=== PATIENT | female | born 1945 | race Caucasian/White ===

== ENCOUNTER → 2018-01-18 | Outpatient (CLI) | payer OTHER ==
[~2018-01-18] MED LIST: ACET325 PO; ARIP10 PO; CEFP200 PO; CEPH500 PO; CHOL10002 PO; CIPR500 PO; CLOP75 PO; CYAN1000 PO; FAMO40 PO; FENO67 PO; Fish Oil 10001000 MG PO; GABA100 PO; GLIP10 PO; GLIP5 PO; GLIPIZIDE; HYDACE5 PO; HYDACE7.5 PO; INSULANPEN SC; LANS15EC PO; LEVFLO500 PO; LIDO2L SS; LISI20 PO; LISI5 PO; LORA1 PO; Loratadine10 MG PO; METF500 PO; OMEP20ER PO; PANT40 PO; POTA20LUD PO; PROP30DR BOTHEYES; Pyridium100 MG; Pyridium100 MG PO; Pyridium200 MG PO; RISAMINE OINTM113 GM TP; TRADJENTA PO; TRIE10TC TOP; ZINCODVICR TOP
[2018-01-18 16:38] LABS: Appearance, Urine Clear (Clear); Bilirubin, Urine Neg (Neg); Blood, Urine Neg (Neg); Color, Urine Yellow (P-Yellow); Glucose Qualitative, Urine Neg (Neg); Ketones, Urine Neg (Neg); Leukocyte Esterase, Urine 2+ (Neg); Nitrite, Urine Neg (Neg); Protein, Urine Neg (Neg); Specific Gravity, Urine 1.015 (1.003-1.022); Urobilinogen, Urine NORM (Normal)
[2018-01-18 16:44] LABS: Bacteria Many /hpf; Red Blood Cells, Urine 0-2 /hpf (0-2); Squamous Epithelial Cells Mod /hpf (Few)
== END ==
LOC: LAB 15:30 → LAB SHORT 15:30
PROVIDERS: Nurse Practitioner Primary Care
DX: N39.0 Urinary tract infection, site not specified (principal)
CPT/HCPCS: 81001; 87077; 87086; 87186

== ENCOUNTER 2018-02-14 12:08 | Emergency (ER) | payer OTHER ==
[~2018-02-14] VITALS: Ht 154.9 cm; Wt 54.4 kg
[2018-02-14] MEDS ORDERED: INSULANPEN SC (12:15)
[2018-02-14 12:36] LABS: Source, Urine Catheter
[2018-02-14 12:47] LABS: Bilirubin, Urine Neg (Neg); Blood, Urine Neg (Neg); Glucose Qualitative, Urine Neg (Neg); Ketones, Urine Neg (Neg); Leukocyte Esterase, Urine 2+ (Neg); Nitrite, Urine Neg (Neg); Protein, Urine Neg (Neg); Urobilinogen, Urine 1+ (Normal)
[2018-02-14 13:02] LABS: Appearance, Urine Cloudy (Clear); Color, Urine Yellow (P-Yellow)
[2018-02-14 13:05] LABS: Bacteria Many /hpf; Red Blood Cells, Urine Not Seen /hpf (0-2); Squamous Epithelial Cells Many /hpf (Few)
[2018-02-14] MEDS ORDERED: CEPH500 PO (13:55)
== END 2018-02-14 15:33 | disposition home or self-care (01) ==
LOC: ER 12:08
PROVIDERS: Physician Assistant
DX: S93.401A Sprain of unspecified ligament of right ankle, initial encounter (principal); N39.0 Urinary tract infection, site not specified; L22 Diaper dermatitis; I10 Essential (primary) hypertension; E11.9 Type 2 diabetes mellitus without complications; F41.9 Anxiety disorder, unspecified; F20.9 Schizophrenia, unspecified; Z88.6 Allergy status to analgesic agent; Z88.8 Allergy status to other drugs, medicaments and biological substances; Z79.4 Long term (current) use of insulin; Z79.899 Other long term (current) drug therapy; W50.0XXA Accidental hit or strike by another person, initial encounter
CPT/HCPCS: 73610; 81001; 87077; 87086; 87186; 99283; P9612

== ENCOUNTER → 2018-03-18 | Outpatient (CLI) | payer OTHER ==
[2018-03-18 15:26] LABS: Bilirubin, Urine Neg (Neg); Blood, Urine Neg (Neg); Glucose Qualitative, Urine 3+ (Neg); Ketones, Urine Neg (Neg); Leukocyte Esterase, Urine Neg (Neg); Nitrite, Urine Neg (Neg); Protein, Urine Neg (Neg); Urobilinogen, Urine NORM (Normal)
[2018-03-18 15:47] LABS: Appearance, Urine Clear (Clear); Color, Urine Yellow (P-Yellow)
== END | disposition home or self-care (01) ==
LOC: LAB 15:13 → LAB SHORT 15:13
PROVIDERS: Nurse Practitioner Primary Care
DX: N39.0 Urinary tract infection, site not specified (principal)
CPT/HCPCS: 81003

== ENCOUNTER → 2018-03-25 | Outpatient (CLI) | payer OTHER ==
[2018-03-25 15:45] LABS: Bilirubin, Urine Neg (Neg); Blood, Urine Neg (Neg); Glucose Qualitative, Urine Neg (Neg); Ketones, Urine 1+ (Neg); Leukocyte Esterase, Urine 1+ (Neg); Nitrite, Urine Neg (Neg); Protein, Urine 1+ (Neg); Specific Gravity, Urine 1.025 (1.003-1.022); Urobilinogen, Urine 2+ (Normal)
[2018-03-25 15:59] LABS: Appearance, Urine Hazy (Clear); Color, Urine Yellow (P-Yellow)
[2018-03-25 16:00] LABS: Bacteria Many /hpf; Red Blood Cells, Urine 0-2 /hpf (0-2); Squamous Epithelial Cells Many /hpf (Few)
== END | disposition home or self-care (01) ==
LOC: LAB 14:35 → LAB SHORT 14:35
PROVIDERS: Nurse Practitioner Primary Care
DX: N39.0 Urinary tract infection, site not specified (principal)
CPT/HCPCS: 81001; 87077; 87086; 87186

== ENCOUNTER 2018-08-31 16:40 | Emergency (ER) | payer OTHER ==
[~2018-08-31] VITALS: Ht 154.9 cm; Wt 65.8 kg
[2018-08-31 17:21] LABS: BASOPHILS ABSOLUTE AUTO 0.02 K/mm3 (0.00-0.23); BASOPHILS PERCENT AUTO 0 % (0-2); EOSINOPHILS ABSOLUTE AUTO 0.06 K/mm3 (0.00-0.68); EOSINOPHILS PERCENT AUTO 1 % (0-6); Hemoglobin 12.7 g/dL (11.5-16.0); IMMATURE GRAN ABSOLUTE AUTO 0.02 K/mm3 (0.00-0.10); IMMATURE GRAN PERCENT AUTO 0 % (0-1); LYMPHOCYTES ABSOLUTE AUTO 1.48 K/mm3 (0.84-5.20); LYMPHOCYTES PERCENT AUTO 14 % (21-46); MONOCYTES ABSOLUTE AUTO 0.52 K/mm3 (0.16-1.47); MONOCYTES PERCENT AUTO 5 % (4-13); Mean Corpuscular HGB 31.5 pg (26.0-34.0); Mean Corpuscular HGB Conc 31.8 g/dL (31.5-36.5); Mean Corpuscular Volume 99 fL (80-100); Mean Platelet Volume 10.5 fL (9.1-12.4); NEUTROPHILS ABSOLUTE AUTO 8.81 K/mm3 (1.96-9.15); NEUTROPHILS PERCENT AUTO 81 % (41-73); Platelet Count 239 K/mm3 (150-400); RDW Coefficient Variation 13.2 % (11.7-14.2); RDW Standard Deviation 48.4 fL (35.1-46.3); Red Blood Cell Count 4.03 M/mm3 (3.80-5.20); White Blood Cell Count 10.91 K/mm3 (4.00-11.30)
[2018-08-31 17:39] LABS: Albumin/Globulin Ratio 1.1 (0.8-1.8); Bilirubin, Total 0.3 mg/dL (0.1-1.0); Bun/Creatinine Ratio 18.6 (12.0-20.0); Calcium, Blood 8.7 mg/dL (8.5-10.1); Creatinine, Blood 1.29 mg/dL (0.40-1.00); Globulin, Blood 3.6 g/dL (2.2-4.0); Potassium, Blood 4.2 mmol/L (3.5-5.5); Total Protein, Blood 7.6 g/dL (6.4-8.2)
[2018-08-31 20:19] LABS: Source, Urine Voided
[2018-08-31 20:30] LABS: Bilirubin, Urine Neg (Neg); Blood, Urine Neg (Neg); Color, Urine Yellow (P-Yellow); Glucose Qualitative, Urine 2+ (Neg); Ketones, Urine Neg (Neg); Leukocyte Esterase, Urine Neg (Neg); Nitrite, Urine Neg (Neg); Protein, Urine 1+ (Neg); Specific Gravity, Urine 1.015 (1.003-1.022); Urobilinogen, Urine NORM (Normal); pH, Urine 6.5 (5.0-8.0)
[2018-08-31 20:39] LABS: Appearance, Urine Clear (Clear)
[2018-08-31] MEDS ORDERED: ONDA4ODT MM (21:27)
== END 2018-08-31 22:08 | disposition home or self-care (01) ==
LOC: ER 16:40
PROVIDERS: Physician Assistant
DX: R11.10 Vomiting, unspecified (principal); I10 Essential (primary) hypertension; E11.9 Type 2 diabetes mellitus without complications; F41.9 Anxiety disorder, unspecified; F20.9 Schizophrenia, unspecified; Z88.6 Allergy status to analgesic agent; Z88.8 Allergy status to other drugs, medicaments and biological substances; Z79.899 Other long term (current) drug therapy; Z79.4 Long term (current) use of insulin
CPT/HCPCS: 36415; 51702; 80053; 82140; 83690; 84484; 85025; 93005; 93010; 96374; 99284-25; J2405

== ENCOUNTER → 2018-10-11 | Outpatient (CLI) | payer OTHER ==
[~2018-10-11] MED LIST changes: +ONDA4ODT MM
[2018-10-12 14:25] LABS: Appearance, Urine Cloudy (Clear); Color, Urine Yellow (P-Yellow); Glucose Qualitative, Urine Neg (Neg); Ketones, Urine Neg (Neg); Leukocyte Esterase, Urine 3+ (Neg); Nitrite, Urine Neg (Neg); Protein, Urine 1+ (Neg); Specific Gravity, Urine 1.015 (1.003-1.022)
[2018-10-12 14:26] LABS: Bilirubin, Urine Neg (Neg); Blood, Urine 2+ (Neg); Red Blood Cells, Urine 50-100 /hpf (0-2); Squamous Epithelial Cells Mod /hpf (Few); Urobilinogen, Urine NORM (Normal); White Blood Cells, Urine TNTC /hpf (0-5)
[2018-10-12 14:27] LABS: Bacteria Many /hpf
== END | disposition home or self-care (01) ==
LOC: LAB SHORT 08:20 → LAB 08:20
PROVIDERS: Family Medicine
DX: N39.0 Urinary tract infection, site not specified (principal)
CPT/HCPCS: 81001; 87077; 87086; 87186

== ENCOUNTER → 2018-11-11 | Outpatient (CLI) | payer OTHER ==
[2018-11-11 10:41] LABS: Bilirubin, Urine Neg (Neg); Blood, Urine Neg (Neg); Glucose Qualitative, Urine 4+ (Neg); Ketones, Urine Neg (Neg); Leukocyte Esterase, Urine Neg (Neg); Nitrite, Urine Neg (Neg); Protein, Urine Neg (Neg); Urobilinogen, Urine NORM (Normal)
[2018-11-11 10:54] LABS: Appearance, Urine Clear (Clear); Color, Urine Yellow (P-Yellow)
== END | disposition home or self-care (01) ==
LOC: LAB 10:32 → LAB SHORT 10:32
PROVIDERS: Family Medicine
DX: N39.0 Urinary tract infection, site not specified (principal)
CPT/HCPCS: 81003

== ENCOUNTER 2018-11-29 11:02 | Emergency (ER) | payer OTHER ==
[~2018-11-29] VITALS: Ht 157.5 cm; Wt 79.4 kg
[2018-11-29 12:21] LABS: BASOPHILS ABSOLUTE AUTO 0.01 K/mm3 (0.00-0.23); BASOPHILS PERCENT AUTO 0 % (0-2); EOSINOPHILS ABSOLUTE AUTO 0.04 K/mm3 (0.00-0.68); EOSINOPHILS PERCENT AUTO 1 % (0-6); Hematocrit 39.4 % (33.0-51.0); Hemoglobin 12.4 g/dL (11.5-16.0); IMMATURE GRAN ABSOLUTE AUTO 0.03 K/mm3 (0.00-0.10); IMMATURE GRAN PERCENT AUTO 0 % (0-1); LYMPHOCYTES ABSOLUTE AUTO 1.84 K/mm3 (0.84-5.20); LYMPHOCYTES PERCENT AUTO 27 % (21-46); MONOCYTES ABSOLUTE AUTO 0.37 K/mm3 (0.16-1.47); MONOCYTES PERCENT AUTO 5 % (4-13); Mean Corpuscular HGB 31.6 pg (26.0-34.0); Mean Corpuscular HGB Conc 31.5 g/dL (31.5-36.5); Mean Corpuscular Volume 100 fL (80-100); Mean Platelet Volume 10.5 fL (9.1-12.4); NEUTROPHILS ABSOLUTE AUTO 4.51 K/mm3 (1.96-9.15); NEUTROPHILS PERCENT AUTO 66 % (41-73); Platelet Count 267 K/mm3 (150-400); RDW Coefficient Variation 13.1 % (11.7-14.2); RDW Standard Deviation 48.6 fL (35.1-46.3); Red Blood Cell Count 3.93 M/mm3 (3.80-5.20)
[2018-11-29 12:48] LABS: Alanine Aminotransfer (ALT/SGP 38 U/L (12-78); Albumin, Blood 3.8 g/dL (3.4-5.0); Albumin/Globulin Ratio 1.1 (0.8-1.8); Alk Phos 56 U/L (50-136); Anion Gap 8 mmol/L (6-16); Aspartate Aminotrans (AST/SGOT 27 U/L (12-37); Bilirubin, Total 0.4 mg/dL (0.1-1.0); Blood Urea Nitrogen 23 mg/dL (8-24); Bun/Creatinine Ratio 16.8 (12.0-20.0); CO2, Blood 26 mmol/L (21-32); Calcium, Blood 9.1 mg/dL (8.5-10.1); Chloride, Blood 108 mmol/L (98-108); Creatinine, Blood 1.37 mg/dL (0.40-1.00); Globulin, Blood 3.5 g/dL (2.2-4.0); Glomerular Filtration Rate 40 (60-); Glucose, Blood 105 mg/dL (70-99); Potassium, Blood 4.4 mmol/L (3.5-5.5); Sodium, Blood 142 mmol/L (136-145); Total Protein, Blood 7.3 g/dL (6.4-8.2); Troponin I <0.015 ng/mL (0.000-0.040)
== END 2018-11-29 13:43 | disposition home or self-care (01) ==
LOC: ER 11:02
PROVIDERS: Emergency Medicine
DX: R10.12 Left upper quadrant pain (principal); Z88.8 Allergy status to other drugs, medicaments and biological substances; Z79.899 Other long term (current) drug therapy; Z79.4 Long term (current) use of insulin; I10 Essential (primary) hypertension; E11.9 Type 2 diabetes mellitus without complications; E78.5 Hyperlipidemia, unspecified; K21.9 Gastro-esophageal reflux disease without esophagitis; F41.9 Anxiety disorder, unspecified; F20.9 Schizophrenia, unspecified
CPT/HCPCS: 36415; 71045; 80053; 83690; 84484; 85025; 93005; 93010; 99285-25

== ENCOUNTER → 2019-01-16 | Outpatient (CLI) | payer OTHER | END | disposition home or self-care (01) | LOC: LAB SHORT 19:23 → LAB 19:23 | DX: N39.0 Urinary tract infection, site not specified (principal) | CPT/HCPCS: 87077; 87086; 87186 ==

== ENCOUNTER → 2020-08-02 | Outpatient (CLI) | payer OTHER ==
[~2020-08-02] MED LIST changes: +ABILIFY MYCITE15 MG PO; +Crestor20 MG PO; +Estrace Vagin42.5 GM VAG; -Fish Oil 10001000 MG PO; +LANTUS SOL100 UNIT/1 SC; +Lisinopril2.5 MG PO; +OMEGA-3 FISH O1 EAC6 PO; +PANT20 PO; +ROSUVASTATIN CA20 MG PO; +TRADJENTA5 MG PO; +TRULICITY0.75 MG/01 SC; +VISBIOME PROBI1 EACH PO
[2020-08-02 14:40] LABS: Appearance, Urine Clear (Clear); Bilirubin, Urine Neg (Neg); Blood, Urine 1+ (Neg); Color, Urine Yellow (P-Yellow); Glucose Qualitative, Urine 4+ (Neg); Ketones, Urine Neg (Neg); Leukocyte Esterase, Urine 2+ (Neg); Nitrite, Urine Neg (Neg); Protein, Urine 1+ (Neg); Urobilinogen, Urine 1+ (Normal)
[2020-08-02 14:49] LABS: Bacteria Many /hpf; Red Blood Cells, Urine 0-2 /hpf (0-2); Squamous Epithelial Cells Few /hpf (Few); White Blood Cells, Urine TNTC /hpf (0-5)
== END | disposition home or self-care (01) ==
LOC: LAB SHORT 14:05 → LAB 14:05
PROVIDERS: Family Medicine
DX: N39.0 Urinary tract infection, site not specified (principal)
CPT/HCPCS: 81001; 87077; 87086; 87186

== ENCOUNTER → 2020-09-17 | Outpatient (CLI) | payer OTHER ==
[~2020-09-17] MED LIST changes: -ABILIFY MYCITE15 MG PO; +ABILIFY MYCITE5 M1 PO; +B-121000 MC3 PO; +Cipro500 MG PO; +DIAPER RASH113 G1 TOP; +MOBISYL TOP; +ONDA4 PO; +SYSTANE COMPLET10 ML BOTHEYES; +VITAMIN D325 MC3 PO
[2020-09-17 10:57] LABS: Source, Urine Clean Catch
[2020-09-17 13:08] LABS: Appearance, Urine Cloudy (Clear); Bilirubin, Urine Neg (Neg); Blood, Urine 1+ (Neg); Color, Urine Yellow (P-Yellow); Glucose Qualitative, Urine Neg (Neg); Ketones, Urine Neg (Neg); Leukocyte Esterase, Urine 3+ (Neg); Nitrite, Urine Neg (Neg); Protein, Urine 1+ (Neg); Specific Gravity, Urine 1.015 (1.003-1.022); Urobilinogen, Urine NORM (Normal)
[2020-09-17 13:20] LABS: Bacteria Many /hpf; Calcium Oxalate Crystals Rare /hpf; Red Blood Cells, Urine 0-2 /hpf (0-2); Squamous Epithelial Cells Many /hpf (Few)
== END | disposition home or self-care (01) ==
LOC: LAB SHORT 10:55 → LAB 10:55
PROVIDERS: Family Medicine
DX: N39.0 Urinary tract infection, site not specified (principal)
CPT/HCPCS: 81001; 87077; 87086; 87186

== ENCOUNTER 2020-12-13 16:36 | Emergency (ER) | payer OTHER ==
[~2020-12-13] VITALS: Ht 154.9 cm; Wt 77.1 kg
[~2020-12-13 16:36] MED LIST changes: -ABILIFY MYCITE5 M1 PO; -B-121000 MC3 PO; -Cipro500 MG PO; -DIAPER RASH113 G1 TOP; -LANTUS SOL100 UNIT/1 SC; -Lisinopril2.5 MG PO; -Loratadine10 MG PO; -MOBISYL TOP; -OMEGA-3 FISH O1 EAC6 PO; -ONDA4 PO; -PANT20 PO; -ROSUVASTATIN CA20 MG PO; -SYSTANE COMPLET10 ML BOTHEYES; -TRADJENTA5 MG PO; -TRULICITY0.75 MG/01 SC; -VITAMIN D325 MC3 PO
[2020-12-13 17:20] LABS: Source, Urine Clean Catch
[2020-12-13 17:23] LABS: BASOPHILS ABSOLUTE AUTO 0.03 K/mm3 (0.00-0.23); BASOPHILS PERCENT AUTO 0 % (0-2); EOSINOPHILS ABSOLUTE AUTO 0.04 K/mm3 (0.00-0.68); EOSINOPHILS PERCENT AUTO 1 % (0-6); Hematocrit 36.7 % (33.0-51.0); Hemoglobin 11.8 g/dL (11.5-16.0); IMMATURE GRAN ABSOLUTE AUTO 0.02 K/mm3 (0.00-0.10); IMMATURE GRAN PERCENT AUTO 0 % (0-1); LYMPHOCYTES ABSOLUTE AUTO 1.84 K/mm3 (0.84-5.20); LYMPHOCYTES PERCENT AUTO 23 % (21-46); MONOCYTES ABSOLUTE AUTO 0.43 K/mm3 (0.16-1.47); MONOCYTES PERCENT AUTO 5 % (4-13); Mean Corpuscular HGB Conc 32.2 g/dL (31.5-36.5); Mean Corpuscular Volume 93 fL (80-100); Mean Platelet Volume 10.2 fL (9.1-12.4); NEUTROPHILS ABSOLUTE AUTO 5.59 K/mm3 (1.96-9.15); NEUTROPHILS PERCENT AUTO 70 % (41-73); Platelet Count 226 K/mm3 (150-400); RDW Coefficient Variation 13.6 % (11.7-14.2); RDW Standard Deviation 46.5 fL (35.1-46.3); Red Blood Cell Count 3.93 M/mm3 (3.80-5.20); White Blood Cell Count 7.95 K/mm3 (4.00-11.30)
[2020-12-13 17:39] LABS: Alanine Aminotransfer (ALT/SGP 17 U/L (12-78); Albumin, Blood 3.5 g/dL (3.4-5.0); Alk Phos 72 U/L (50-136); Anion Gap 6 mmol/L (6-16); Aspartate Aminotrans (AST/SGOT 12 U/L (12-37); Bilirubin, Total 0.4 mg/dL (0.1-1.0); Blood Urea Nitrogen 16 mg/dL (8-24); Bun/Creatinine Ratio 12.9 (12.0-20.0); CO2, Blood 26 mmol/L (21-32); Calcium, Blood 8.9 mg/dL (8.5-10.1); Chloride, Blood 107 mmol/L (98-108); Creatinine, Blood 1.24 mg/dL (0.40-1.00); Globulin, Blood 3.5 g/dL (2.2-4.0); Glomerular Filtration Rate 45 (60-); Glucose, Blood 154 mg/dL (70-99); Magnesium, Blood 2.4 mg/dL (1.6-2.4); Potassium, Blood 3.8 mmol/L (3.5-5.5); Sodium, Blood 139 mmol/L (136-145)
[2020-12-13 17:41] LABS: Troponin I <0.015 ng/mL (0.000-0.040)
[2020-12-13 17:44] LABS: Bilirubin, Urine Neg (Neg); Blood, Urine 1+ (Neg); Glucose Qualitative, Urine Neg (Neg); Ketones, Urine Neg (Neg); Leukocyte Esterase, Urine 1+ (Neg); Nitrite, Urine Pos (Neg); Protein, Urine 1+ (Neg); Urobilinogen, Urine NORM (Normal)
[2020-12-13 17:58] LABS: Appearance, Urine Hazy (Clear); Color, Urine Yellow (P-Yellow)
[2020-12-13 17:59] LABS: Bacteria Many /hpf; Red Blood Cells, Urine 0-2 /hpf (0-2); Squamous Epithelial Cells Few /hpf (Few)
[2020-12-13] MEDS ORDERED: Cipro500 MG PO (20:00)
[2020-12-13] MEDS ORDERED: TRULICITY0.75 MG/01 SC (20:06)
[2020-12-13] MEDS ORDERED: LANTUS SOL100 UNIT/1 SC (20:06)
[2020-12-13] MEDS ORDERED: ABILIFY MYCITE5 M1 PO (20:07)
[2020-12-13] MEDS ORDERED: CLOP75 PO (20:07)
[2020-12-13] MEDS ORDERED: GLIP10 PO (20:08)
[2020-12-13] MEDS ORDERED: OMEGA-3 FISH O1 EAC6 PO (20:08)
[2020-12-13] MEDS ORDERED: Loratadine10 MG PO (20:09)
[2020-12-13] MEDS ORDERED: ROSUVASTATIN CA20 MG PO (20:09)
[2020-12-13] MEDS ORDERED: Lisinopril2.5 MG PO (20:09)
[2020-12-13] MEDS ORDERED: PANT20 PO (20:10)
[2020-12-13] MEDS ORDERED: B-121000 MC3 PO (20:11)
[2020-12-13] MEDS ORDERED: TRADJENTA5 MG PO (20:11)
[2020-12-13] MEDS ORDERED: VITAMIN D325 MC3 PO (20:11)
[2020-12-13] MEDS ORDERED: ONDA4 PO (20:12)
[2020-12-13] MEDS ORDERED: ACET325 PO (20:12)
[2020-12-13] MEDS ORDERED: MOBISYL TOP (20:14)
[2020-12-13] MEDS ORDERED: DIAPER RASH113 G1 TOP (20:14)
[2020-12-13] MEDS ORDERED: SYSTANE COMPLET10 ML BOTHEYES (20:15)
== END 2020-12-13 21:29 | disposition home or self-care (01) ==
LOC: ER 16:36
PROVIDERS: Emergency Medicine
DX: N39.0 Urinary tract infection, site not specified (principal); F03.90 Unspecified dementia, unspecified severity, without behavioral disturbance, psychotic disturbance, mood disturbance, and anxiety; Z79.4 Long term (current) use of insulin; Z79.899 Other long term (current) drug therapy
CPT/HCPCS: 80053; 81001; 83735; 84145; 84484; 85025; 87077; 87086; 87186; 93005; 93010; 96365; 96375; 99284-25; A9270; J0696; J2405

== ENCOUNTER → 2021-01-21 | Outpatient (CLI) | payer OTHER ==
[~2021-01-21] MED LIST changes: +ABILIFY MYCITE5 M1 PO; +B-121000 MC3 PO; +Cipro500 MG PO; +DIAPER RASH113 G1 TOP; +LANTUS SOL100 UNIT/1 SC; +Lisinopril2.5 MG PO; +Loratadine10 MG PO; +MOBISYL TOP; +OMEGA-3 FISH O1 EAC6 PO; +ONDA4 PO; +PANT20 PO; +ROSUVASTATIN CA20 MG PO; +SYSTANE COMPLET10 ML BOTHEYES; +TRADJENTA5 MG PO; +TRULICITY0.75 MG/01 SC; +VITAMIN D325 MC3 PO
[2021-01-21 12:47] LABS: Appearance, Urine Hazy (Clear); Bilirubin, Urine Neg (Neg); Blood, Urine Neg (Neg); Color, Urine Yellow (P-Yellow); Glucose Qualitative, Urine Neg (Neg); Ketones, Urine Neg (Neg); Leukocyte Esterase, Urine 1+ (Neg); Nitrite, Urine Neg (Neg); Protein, Urine Neg (Neg); Urobilinogen, Urine NORM (Normal)
[2021-01-21 13:19] LABS: Squamous Epithelial Cells Rare /hpf (Few)
[2021-01-21 13:20] LABS: Amorphous Light (0-Heavy); Bacteria Many /hpf; Renal Epithelial Few /hpf (0-Rare); Transitional Epithelial Cells Few /hpf (0-Rare)
== END | disposition home or self-care (01) ==
LOC: LAB SHORT 10:10 → LAB 10:10
PROVIDERS: Family Medicine
DX: N39.0 Urinary tract infection, site not specified (principal)
CPT/HCPCS: 81001; 87077; 87086; 87186

== ENCOUNTER → 2021-01-28 | Outpatient (CLI) | payer OTHER ==
[2021-01-28 12:29] LABS: Appearance, Urine Clear (Clear); Bilirubin, Urine Neg (Neg); Blood, Urine 1+ (Neg); Color, Urine Yellow (P-Yellow); Glucose Qualitative, Urine 2+ (Neg); Ketones, Urine Neg (Neg); Leukocyte Esterase, Urine 1+ (Neg); Nitrite, Urine Neg (Neg); Protein, Urine 1+ (Neg); Urobilinogen, Urine NORM (Normal)
[2021-01-28 13:05] LABS: Bacteria Few /hpf; Squamous Epithelial Cells Mod /hpf (Few)
== END | disposition home or self-care (01) ==
LOC: LAB SHORT 10:55 → LAB 10:55
PROVIDERS: Family Medicine
DX: N39.0 Urinary tract infection, site not specified (principal)
CPT/HCPCS: 81001; 87086

== ENCOUNTER → 2021-02-06 | Outpatient (CLI) | payer OTHER | END | disposition home or self-care (01) | LOC: LAB SHORT 15:24 → LAB 15:24 | DX: N39.0 Urinary tract infection, site not specified (principal) | CPT/HCPCS: 87086 ==

== ENCOUNTER → 2021-02-11 | Outpatient (CLI) | payer OTHER ==
[2021-02-11 16:32] LABS: Source, Urine Clean Catch
[2021-02-11 20:31] LABS: White Blood Cells, Urine 25-50 /hpf (0-5)
[2021-02-11 20:32] LABS: Bacteria Mod /hpf; Squamous Epithelial Cells Few /hpf (Few)
== END | disposition home or self-care (01) ==
LOC: PLD 15:53 → LAB SHORT 15:53
PROVIDERS: Family Medicine
DX: N39.0 Urinary tract infection, site not specified (principal)
CPT/HCPCS: 81015; 87077; 87086; 87186

== ENCOUNTER → 2021-03-26 | Outpatient (CLI) | payer OTHER ==
[2021-03-26 11:16] LABS: Appearance, Urine Clear (Clear); Bilirubin, Urine Neg (Neg); Blood, Urine Neg (Neg); Color, Urine Yellow (P-Yellow); Glucose Qualitative, Urine Neg (Neg); Ketones, Urine Neg (Neg); Nitrite, Urine Neg (Neg); Specific Gravity, Urine 1.015 (1.003-1.022); Urobilinogen, Urine NORM (Normal)
[2021-03-26 11:53] LABS: Leukocyte Esterase, Urine 1+ (Neg); Protein, Urine 1+ (Neg)
[2021-03-26 11:55] LABS: Bacteria Many /hpf; Red Blood Cells, Urine 0-2 /hpf (0-2); Squamous Epithelial Cells Few /hpf (Few)
== END | disposition home or self-care (01) ==
LOC: LAB SHORT 09:52
PROVIDERS: Family Medicine
DX: R53.83 Other fatigue (principal); M54.5 Low back pain; R35.0 Frequency of micturition
CPT/HCPCS: 81001; 87077; 87086; 87186

== ENCOUNTER → 2021-05-29 | Outpatient (CLI) | payer OTHER | END | disposition home or self-care (01) | LOC: LAB SHORT 13:56 | DX: N39.0 Urinary tract infection, site not specified (principal) | CPT/HCPCS: 87077; 87086; 87186 ==

== ENCOUNTER → 2021-06-09 | Outpatient (CLI) | payer OTHER ==
[2021-06-09 19:33] LABS: Appearance, Urine Clear (Clear); Bilirubin, Urine Neg (Neg); Blood, Urine Neg (Neg); Color, Urine Yellow (P-Yellow); Glucose Qualitative, Urine Neg (Neg); Ketones, Urine Neg (Neg); Leukocyte Esterase, Urine Neg (Neg); Nitrite, Urine Neg (Neg); Protein, Urine 1+ (Neg); Urobilinogen, Urine NORM (Normal)
== END | disposition home or self-care (01) ==
LOC: LAB SHORT 17:45
PROVIDERS: Family Medicine
DX: N39.0 Urinary tract infection, site not specified (principal)
CPT/HCPCS: 87086

== ENCOUNTER → 2021-06-13 | Outpatient (CLI) | payer OTHER ==
[2021-06-14 14:04] LABS: Candida species (DNA Probe) Negative (NEGATIVE); G. vaginalis (DNA Probe) Negative (NEGATIVE); T. vaginalis (DNA Probe) Negative (NEGATIVE)
[2021-06-16 00:06] LABS: CHLAMYDIA BY NAA Negative (Negative); GONOCOCCUS BY NAA Negative (Negative); TRICH VAG BY NAA Negative (Negative)
== END ==
LOC: LAB SHORT 18:00
PROVIDERS: Family Medicine
DX: N76.0 Acute vaginitis (principal)
CPT/HCPCS: 87070; 87205; 87480; 87491; 87510; 87591; 87660; 87661

== ENCOUNTER → 2021-07-22 | Outpatient (CLI) | payer OTHER ==
[2021-07-22 14:13] LABS: Appearance, Urine Clear (Clear); Bilirubin, Urine Neg (Neg); Blood, Urine 3+ (Neg); Color, Urine Yellow (P-Yellow); Glucose Qualitative, Urine Neg (Neg); Ketones, Urine Neg (Neg); Leukocyte Esterase, Urine 1+ (Neg); Nitrite, Urine Neg (Neg); Protein, Urine 1+ (Neg); Urobilinogen, Urine 2+ (Normal)
[2021-07-22 14:30] LABS: Red Blood Cells, Urine 0-2 /hpf (0-2); Squamous Epithelial Cells Few /hpf (Few)
[2021-07-22 14:32] LABS: Bacteria Mod /hpf
== END | disposition home or self-care (01) ==
LOC: LAB SHORT 12:37 → LAB 12:37
PROVIDERS: Family Medicine
DX: N39.0 Urinary tract infection, site not specified (principal)
CPT/HCPCS: 81001; 87077; 87086; 87186

== ENCOUNTER 2021-08-08 12:42 | Emergency (ER) | payer OTHER ==
[~2021-08-08] VITALS: Ht 154.9 cm; Wt 54.4 kg
[2021-08-08 13:27] LABS: BASOPHILS ABSOLUTE AUTO 0.03 K/mm3 (0.00-0.23); BASOPHILS PERCENT AUTO 0 % (0-2); EOSINOPHILS ABSOLUTE AUTO 0.11 K/mm3 (0.00-0.68); EOSINOPHILS PERCENT AUTO 2 % (0-6); Hematocrit 39.8 % (33.0-51.0); Hemoglobin 12.8 g/dL (11.5-16.0); IMMATURE GRAN ABSOLUTE AUTO 0.02 K/mm3 (0.00-0.10); IMMATURE GRAN PERCENT AUTO 0 % (0-1); LYMPHOCYTES PERCENT AUTO 23 % (21-46); MONOCYTES ABSOLUTE AUTO 0.58 K/mm3 (0.16-1.47); MONOCYTES PERCENT AUTO 9 % (4-13); Mean Corpuscular HGB 30.9 pg (26.0-34.0); Mean Corpuscular HGB Conc 32.2 g/dL (31.5-36.5); Mean Corpuscular Volume 96 fL (80-100); Mean Platelet Volume 10.2 fL (9.1-12.4); NEUTROPHILS ABSOLUTE AUTO 4.49 K/mm3 (1.96-9.15); NEUTROPHILS PERCENT AUTO 66 % (41-73); Platelet Count 210 K/mm3 (150-400); RDW Coefficient Variation 13.5 % (11.7-14.2); Red Blood Cell Count 4.14 M/mm3 (3.80-5.20); White Blood Cell Count 6.83 K/mm3 (4.00-11.30)
[2021-08-08 13:41] LABS: Albumin, Blood 3.7 g/dL (3.4-5.0); Albumin/Globulin Ratio 0.9 (0.8-1.8); Bilirubin, Total 0.5 mg/dL (0.1-1.0); Bun/Creatinine Ratio 21.5 (12.0-20.0); Calcium, Blood 9.4 mg/dL (8.5-10.1); Creatinine, Blood 1.07 mg/dL (0.40-1.00); Globulin, Blood 4.2 g/dL (2.2-4.0); Potassium, Blood 4.3 mmol/L (3.5-5.5); Total Protein, Blood 7.9 g/dL (6.4-8.2)
[2021-08-08] MEDS ORDERED: INSULANI SC (13:50)
[2021-08-08 13:51] LABS: Source, Urine Clean Catch
[2021-08-08] MEDS ORDERED: TRULICITY0.75 MG/01 SC (13:51)
[2021-08-08] MEDS ORDERED: CLOP75 PO (13:52)
[2021-08-08] MEDS ORDERED: ABILIFY MYCITE5 M2 PO (13:52)
[2021-08-08] MEDS ORDERED: FISH OIL 1,2001 EAC7 PO (13:53)
[2021-08-08] MEDS ORDERED: Crestor20 MG PO (13:53)
[2021-08-08] MEDS ORDERED: LORA10ER PO (13:54)
[2021-08-08] MEDS ORDERED: Lisinopril2.5 MG PO (13:54)
[2021-08-08] MEDS ORDERED: GLIP10 PO (13:54)
[2021-08-08] MEDS ORDERED: PANT20 PO (13:55)
[2021-08-08] MEDS ORDERED: Vitamin B-121000 MCG PO (13:55)
[2021-08-08] MEDS ORDERED: TRADJENTA5 MG PO (13:55)
[2021-08-08] MEDS ORDERED: PREG25 PO (13:56)
[2021-08-08] MEDS ORDERED: CIPR250 PO (13:56)
[2021-08-08] MEDS ORDERED: ONDA4 PO (13:57)
[2021-08-08] MEDS ORDERED: DICLOFENAC SOD100 GM TP (13:57)
[2021-08-08] MEDS ORDERED: ACET325 PO (13:57)
[2021-08-08] MEDS ORDERED: SYSTANE COMPLET10 ML BOTHEYES (13:58)
[2021-08-08 14:00] LABS: Appearance, Urine Hazy (Clear); Bilirubin, Urine Neg (Neg); Blood, Urine 1+ (Neg); Color, Urine Yellow (P-Yellow); Glucose Qualitative, Urine Neg (Neg); Ketones, Urine Neg (Neg); Leukocyte Esterase, Urine 1+ (Neg); Nitrite, Urine Pos (Neg); Protein, Urine 2+ (Neg); Urobilinogen, Urine NORM (Normal)
[2021-08-08 14:07] LABS: White Blood Cells, Urine 25-50 /hpf (0-5)
[2021-08-08 14:08] LABS: Bacteria Many /hpf; Red Blood Cells, Urine 0-2 /hpf (0-2); Squamous Epithelial Cells Few /hpf (Few)
[2021-08-08] MEDS ORDERED: CEFD300 PO (14:38)
== END 2021-08-08 15:13 | disposition home or self-care (01) ==
LOC: ER 12:42
PROVIDERS: Emergency Medicine
DX: S09.90XA Unspecified injury of head, initial encounter (principal); N39.0 Urinary tract infection, site not specified; Z88.8 Allergy status to other drugs, medicaments and biological substances; Z88.6 Allergy status to analgesic agent; Z79.84 Long term (current) use of oral hypoglycemic drugs; Z79.899 Other long term (current) drug therapy; Z79.4 Long term (current) use of insulin; I10 Essential (primary) hypertension; E11.9 Type 2 diabetes mellitus without complications; E78.5 Hyperlipidemia, unspecified; K21.9 Gastro-esophageal reflux disease without esophagitis; W19.XXXA Unspecified fall, initial encounter
CPT/HCPCS: 70450; 80053; 81001; 82947; 85025; 87077; 87086; 87186; 93005; 93010; 99284-25; A9270

== ENCOUNTER 2021-09-01 15:21 | Emergency (ER) | payer OTHER ==
[~2021-09-01] VITALS: Ht 154.9 cm; Wt 49.9 kg
[~2021-09-01 15:21] MED LIST changes: +ABILIFY MYCITE5 M2 PO; +CEFD300 PO; +CIPR250 PO; +DICLOFENAC SOD100 GM TP; +FISH OIL 1,2001 EAC7 PO; +INSULANI SC; +LORA10ER PO; +PREG25 PO; +Vitamin B-121000 MCG PO
== END 2021-09-01 17:40 | disposition home or self-care (01) ==
LOC: ER 15:21
DX: S09.90XA Unspecified injury of head, initial encounter (principal); I10 Essential (primary) hypertension; E11.9 Type 2 diabetes mellitus without complications; F20.9 Schizophrenia, unspecified; E78.5 Hyperlipidemia, unspecified; K21.9 Gastro-esophageal reflux disease without esophagitis; Z86.73 Personal history of transient ischemic attack (TIA), and cerebral infarction without residual deficits; Z88.6 Allergy status to analgesic agent; Z79.4 Long term (current) use of insulin; Z79.899 Other long term (current) drug therapy; Z88.8 Allergy status to other drugs, medicaments and biological substances; W01.198A Fall on same level from slipping, tripping and stumbling with subsequent striking against other object, initial encounter
CPT/HCPCS: 70450; 99284-25

== ENCOUNTER → 2021-10-13 | Outpatient (CLI) | payer OTHER ==
[2021-10-13 13:50] LABS: Source, Urine Clean Catch
[2021-10-13 15:34] LABS: Bilirubin, Urine Neg (Neg); Blood, Urine 1+ (Neg); Glucose Qualitative, Urine Neg (Neg); Ketones, Urine Neg (Neg); Leukocyte Esterase, Urine 3+ (Neg); Nitrite, Urine Neg (Neg); Protein, Urine 1+ (Neg); Urobilinogen, Urine 1+ (Normal)
[2021-10-13 15:40] LABS: Appearance, Urine Cloudy (Clear); Color, Urine Pale Yellow (P-Yellow)
[2021-10-13 15:43] LABS: Bacteria Many /hpf; Squamous Epithelial Cells Few /hpf (Few)
[2021-10-13 15:44] LABS: Amorphous Light (0-Heavy); Mucus Light (0-Heavy)
== END ==
LOC: LAB SHORT 13:46
PROVIDERS: Family Medicine
DX: N39.0 Urinary tract infection, site not specified (principal)
CPT/HCPCS: 81001

== ENCOUNTER → 2021-11-04 | Outpatient (CLI) | payer OTHER | END | disposition home or self-care (01) | LOC: LAB 12:00 → LAB SHORT 12:00 | DX: N39.0 Urinary tract infection, site not specified (principal) | CPT/HCPCS: 87077; 87086; 87186 ==

== ENCOUNTER → 2021-12-26 | Outpatient (CLI) | payer OTHER ==
[2021-12-26 16:01] LABS: Source, Urine Voided
[2021-12-26 17:26] LABS: Appearance, Urine Clear (Clear); Bilirubin, Urine Neg (Neg); Blood, Urine Neg (Neg); Color, Urine Yellow (P-Yellow); Glucose Qualitative, Urine 1+ (Neg); Ketones, Urine Neg (Neg); Leukocyte Esterase, Urine 1+ (Neg); Nitrite, Urine Neg (Neg); Protein, Urine 1+ (Neg); Specific Gravity, Urine 1.025 (1.003-1.022); Urobilinogen, Urine NORM (Normal)
[2021-12-26 17:41] LABS: Bacteria Mod /hpf; Mucus Light (0-Heavy); Squamous Epithelial Cells Many /hpf (Few)
== END | disposition home or self-care (01) ==
LOC: LAB SHORT 15:55
PROVIDERS: Family Medicine
DX: N39.0 Urinary tract infection, site not specified (principal)
CPT/HCPCS: 81001; 87077; 87086; 87186

== ENCOUNTER → 2022-02-05 | Outpatient (CLI) | payer OTHER ==
[2022-02-05 18:44] LABS: Appearance, Urine Cloudy (Clear); Bilirubin, Urine Neg (Neg); Blood, Urine 2+ (Neg); Color, Urine Yellow (P-Yellow); Glucose Qualitative, Urine 1+ (Neg); Ketones, Urine Neg (Neg); Leukocyte Esterase, Urine 2+ (Neg); Nitrite, Urine Neg (Neg); Protein, Urine Neg (Neg); Urobilinogen, Urine NORM (Normal)
[2022-02-05 18:54] LABS: Bacteria Many /hpf; Squamous Epithelial Cells Mod /hpf (Few)
== END | disposition home or self-care (01) ==
LOC: LAB SHORT 14:43
PROVIDERS: Family Medicine
DX: N39.0 Urinary tract infection, site not specified (principal)
CPT/HCPCS: 81001

== ENCOUNTER → 2022-04-29 | Outpatient (CLI) | payer OTHER ==
[2022-04-29 16:40] LABS: Appearance, Urine Hazy (Clear); Blood, Urine Neg (Neg); Color, Urine Yellow (P-Yellow); Glucose Qualitative, Urine Neg (Neg); Ketones, Urine Neg (Neg); Leukocyte Esterase, Urine 3+ (Neg); Nitrite, Urine Neg (Neg); Protein, Urine 2+ (Neg); Urobilinogen, Urine NORM (Normal)
[2022-04-29 17:12] LABS: Bilirubin, Urine 1+ (Neg)
[2022-04-29 17:14] LABS: Bacteria Many /hpf; Red Blood Cells, Urine 0-2 /hpf (0-2); Squamous Epithelial Cells Mod /hpf (Few); White Blood Cells, Urine 25-50 /hpf (0-5)
== END | disposition home or self-care (01) ==
LOC: LAB SHORT 13:00
PROVIDERS: Family Medicine
DX: N39.0 Urinary tract infection, site not specified (principal); R30.9 Painful micturition, unspecified
CPT/HCPCS: 81001; 87077; 87086; 87186

== ENCOUNTER → 2022-05-15 | Outpatient (CLI) | payer OTHER ==
[2022-05-15 15:47] LABS: Source, Urine Voided
[2022-05-15 16:36] LABS: Appearance, Urine Hazy (Clear); Bilirubin, Urine Neg (Neg); Blood, Urine Neg (Neg); Color, Urine Yellow (P-Yellow); Glucose Qualitative, Urine Neg (Neg); Ketones, Urine Neg (Neg); Leukocyte Esterase, Urine Neg (Neg); Nitrite, Urine Neg (Neg); Protein, Urine Neg (Neg); Urobilinogen, Urine NORM (Normal)
[2022-05-15 17:04] LABS: Bacteria Many /hpf; Red Blood Cells, Urine 0-2 /hpf (0-2); Squamous Epithelial Cells Few /hpf (Few)
== END | disposition home or self-care (01) ==
LOC: LAB SHORT 15:20 → LAB 15:20
PROVIDERS: Family Medicine
DX: N39.0 Urinary tract infection, site not specified (principal)
CPT/HCPCS: 81001; 87077; 87086; 87186

== ENCOUNTER → 2022-06-16 | Outpatient (CLI) | payer OTHER | LOC: LAB 19:00 → LAB SHORT 19:00 | DX: E11.9 Type 2 diabetes mellitus without complications (principal) | CPT/HCPCS: 82043 ==

== ENCOUNTER 2022-12-11 17:05 | Emergency (ER) | payer OTHER ==
[~2022-12-11] VITALS: Ht 157.5 cm; Wt 68.0 kg
== END 2022-12-11 23:33 | disposition home or self-care (01) ==
LOC: ER 17:05
DX: T17.928A Food in respiratory tract, part unspecified causing other injury, initial encounter (principal); I10 Essential (primary) hypertension; E11.9 Type 2 diabetes mellitus without complications; K21.9 Gastro-esophageal reflux disease without esophagitis; E78.5 Hyperlipidemia, unspecified; X58.XXXA Exposure to other specified factors, initial encounter; Z79.4 Long term (current) use of insulin; Z79.899 Other long term (current) drug therapy; Z88.8 Allergy status to other drugs, medicaments and biological substances; Z86.73 Personal history of transient ischemic attack (TIA), and cerebral infarction without residual deficits
CPT/HCPCS: 71046; 99283-25; A9270

== ENCOUNTER → 2023-01-12 | Outpatient (CLI) | payer OTHER ==
[2023-01-12 19:05] LABS: BASOPHILS ABSOLUTE AUTO 0.02 K/mm3 (0.00-0.23); BASOPHILS PERCENT AUTO 0 % (0-2); EOSINOPHILS ABSOLUTE AUTO 0.07 K/mm3 (0.00-0.68); EOSINOPHILS PERCENT AUTO 1 % (0-6); Hematocrit 36.3 % (33.0-51.0); Hemoglobin 11.7 g/dL (11.5-16.0); IMMATURE GRAN ABSOLUTE AUTO 0.06 K/mm3 (0.00-0.10); IMMATURE GRAN PERCENT AUTO 1 % (0-1); LYMPHOCYTES ABSOLUTE AUTO 1.71 K/mm3 (0.84-5.20); LYMPHOCYTES PERCENT AUTO 21 % (21-46); MONOCYTES ABSOLUTE AUTO 0.44 K/mm3 (0.16-1.47); MONOCYTES PERCENT AUTO 6 % (4-13); Mean Corpuscular HGB 30.6 pg (26.0-34.0); Mean Corpuscular HGB Conc 32.2 g/dL (31.5-36.5); Mean Corpuscular Volume 95 fL (80-100); Mean Platelet Volume 11.4 fL (9.1-12.4); NEUTROPHILS PERCENT AUTO 71 % (41-73); Platelet Count 214 K/mm3 (150-400); RDW Coefficient Variation 13.8 % (11.7-14.2); RDW Standard Deviation 47.8 fL (35.1-46.3); Red Blood Cell Count 3.82 M/mm3 (3.80-5.20)
[2023-01-12 19:51] LABS: Albumin, Blood 3.8 g/dL (3.4-5.0); Bilirubin, Total 0.4 mg/dL (0.1-1.0); Bun/Creatinine Ratio 16.7 (12.0-20.0); Calcium, Blood 9.2 mg/dL (8.5-10.1); Creatinine, Blood 1.62 mg/dL (0.40-1.00); Globulin, Blood 3.9 g/dL (2.2-4.0); Potassium, Blood 4.9 mmol/L (3.5-5.5); Thyroid Stimulating Hormone 0.796 uIU/mL (0.360-4.800); Total Protein, Blood 7.7 g/dL (6.4-8.2)
[2023-01-12 19:51] LABS: Microalb/Creat Ratio UR, Rand 22.281 mg/g (0.000-30.000); Microalbumin, Random Urine 25.4 mg/L (0.000-20.000)
== END | disposition home or self-care (01) ==
LOC: LAB 16:45 → LAB SHORT 16:45
PROVIDERS: Family Medicine
DX: E11.9 Type 2 diabetes mellitus without complications (principal); R30.9 Painful micturition, unspecified; R20.0 Anesthesia of skin; R20.2 Paresthesia of skin
CPT/HCPCS: 80053; 82043; 82570; 84443; 85025; 87077; 87086; 87186

== ENCOUNTER → 2023-04-06 | Outpatient (CLI) | payer OTHER ==
[2023-04-06 14:59] LABS: Source, Urine Voided
[2023-04-06 15:27] LABS: Appearance, Urine Clear (Clear); Bilirubin, Urine Neg (Neg); Blood, Urine Neg (Neg); Color, Urine Yellow (P-Yellow); Glucose Qualitative, Urine Neg (Neg); Ketones, Urine Neg (Neg); Leukocyte Esterase, Urine 2+ (Neg); Nitrite, Urine Pos (Neg); Protein, Urine 1+ (Neg); Specific Gravity, Urine 1.015 (1.003-1.022); Urobilinogen, Urine NORM (Normal)
[2023-04-06 15:51] LABS: Bacteria Many /hpf; Red Blood Cells, Urine 0-2 /hpf (0-2); Squamous Epithelial Cells Few /hpf (Few)
[2023-04-06 15:52] LABS: Granular Casts 0-2 /lpf (0)
== END ==
LOC: LAB 14:57 → LAB SHORT 14:57
PROVIDERS: Family Medicine
DX: N39.0 Urinary tract infection, site not specified (principal)
CPT/HCPCS: 81001; 87077; 87086; 87186

== ENCOUNTER → 2023-04-30 | Outpatient (CLI) | payer OTHER ==
[2023-04-30 18:59] LABS: Source, Urine Voided
[2023-04-30 20:02] LABS: White Blood Cells, Urine 50-100 /hpf (0-5)
[2023-04-30 20:04] LABS: Bacteria Many /hpf; Squamous Epithelial Cells Few /hpf (Few)
== END | disposition home or self-care (01) ==
LOC: LAB SHORT 18:57 → LAB 18:57
PROVIDERS: Family Medicine
DX: R30.9 Painful micturition, unspecified (principal)
CPT/HCPCS: 81015; 87077; 87086; 87186

== ENCOUNTER 2023-05-08 13:06 | Emergency (ER) | payer OTHER ==
[~2023-05-08] VITALS: Ht 154.9 cm; Wt 56.7 kg
[2023-05-08 14:14] LABS: BASOPHILS ABSOLUTE AUTO 0.02 K/mm3 (0.00-0.23); BASOPHILS PERCENT AUTO 0 % (0-2); EOSINOPHILS ABSOLUTE AUTO 0.06 K/mm3 (0.00-0.68); EOSINOPHILS PERCENT AUTO 1 % (0-6); Hematocrit 36.5 % (33.0-51.0); IMMATURE GRAN ABSOLUTE AUTO 0.03 K/mm3 (0.00-0.10); IMMATURE GRAN PERCENT AUTO 0 % (0-1); LYMPHOCYTES ABSOLUTE AUTO 1.42 K/mm3 (0.84-5.20); LYMPHOCYTES PERCENT AUTO 20 % (21-46); MONOCYTES ABSOLUTE AUTO 0.32 K/mm3 (0.16-1.47); MONOCYTES PERCENT AUTO 4 % (4-13); Mean Corpuscular HGB 30.8 pg (26.0-34.0); Mean Corpuscular HGB Conc 32.9 g/dL (31.5-36.5); Mean Corpuscular Volume 94 fL (80-100); Mean Platelet Volume 11.3 fL (9.1-12.4); NEUTROPHILS ABSOLUTE AUTO 5.38 K/mm3 (1.96-9.15); NEUTROPHILS PERCENT AUTO 75 % (41-73); Platelet Count 172 K/mm3 (150-400); RDW Coefficient Variation 13.2 % (11.7-14.2); RDW Standard Deviation 45.2 fL (35.1-46.3); White Blood Cell Count 7.23 K/mm3 (4.00-11.30)
[2023-05-08 14:35] LABS: Alanine Aminotransfer (ALT/SGP 16 U/L (12-78); Albumin, Blood 3.8 g/dL (3.4-5.0); Albumin/Globulin Ratio 1.1 (0.8-1.8); Alk Phos 72 U/L (50-136); Anion Gap 5 mmol/L (6-16); Aspartate Aminotrans (AST/SGOT 12 U/L (12-37); Bilirubin, Total 0.5 mg/dL (0.1-1.0); Blood Urea Nitrogen 32 mg/dL (8-24); Bun/Creatinine Ratio 19.4 (12.0-20.0); CO2, Blood 26 mmol/L (21-32); Calcium, Blood 8.9 mg/dL (8.5-10.1); Chloride, Blood 102 mmol/L (98-108); Creatinine, Blood 1.65 mg/dL (0.40-1.00); Globulin, Blood 3.5 g/dL (2.2-4.0); Glomerular Filtration Rate 31 (60-); Glucose, Blood 547 mg/dL (70-99); Potassium, Blood 4.9 mmol/L (3.5-5.5); Sodium, Blood 133 mmol/L (136-145); Total Protein, Blood 7.3 g/dL (6.4-8.2)
[2023-05-08 14:50] LABS: Source, Urine Straight Cath
[2023-05-08 14:55] LABS: Appearance, Urine Hazy (Clear); Bilirubin, Urine Neg (Neg); Blood, Urine 3+ (Neg); Color, Urine Yellow (P-Yellow); Glucose Qualitative, Urine 4+ (Neg); Ketones, Urine Neg (Neg); Leukocyte Esterase, Urine 3+ (Neg); Nitrite, Urine Neg (Neg); Protein, Urine Neg (Neg); Urobilinogen, Urine NORM (Normal)
[2023-05-08 15:04] LABS: Bacteria Many /hpf; Squamous Epithelial Cells Mod /hpf (Few); White Blood Cells, Urine 25-50 /hpf (0-5)
[2023-05-08 15:05] LABS: Granular Casts 0-2 /lpf (0); Renal Epithelial Few /hpf (0-Rare)
[2023-05-08] MEDS ORDERED: TUMS500 MG PO (19:07)
[2023-05-08] MEDS ORDERED: CEPH250A PO (19:08)
[2023-05-08] MEDS ORDERED: INSULIN GL100 UNIT/4 SC (19:47)
[2023-05-08 21:00] VITALS: BP 137/64
== END 2023-05-08 21:38 | disposition home or self-care (01) ==
LOC: ER 13:06
PROVIDERS: Emergency Medicine; Physician Assistant
DX: E11.65 Type 2 diabetes mellitus with hyperglycemia (principal); I10 Essential (primary) hypertension; E78.5 Hyperlipidemia, unspecified; K21.9 Gastro-esophageal reflux disease without esophagitis; Z86.73 Personal history of transient ischemic attack (TIA), and cerebral infarction without residual deficits; Z88.6 Allergy status to analgesic agent; Z88.8 Allergy status to other drugs, medicaments and biological substances; Z79.02 Long term (current) use of antithrombotics/antiplatelets; Z79.899 Other long term (current) drug therapy
CPT/HCPCS: 80053; 81001; 82947; 83930; 85025; 87086; 96360; 99284-25; J1815; J7030

== ENCOUNTER → 2023-05-26 | Outpatient (CLI) | payer OTHER ==
[~2023-05-26] MED LIST changes: +CEPH250A PO; +INSULIN GL100 UNIT/4 SC; +TUMS500 MG PO
[2023-05-26 15:49] LABS: Appearance, Urine Cloudy (Clear); Bilirubin, Urine Neg (Neg); Blood, Urine 2+ (Neg); Color, Urine Yellow (P-Yellow); Glucose Qualitative, Urine 2+ (Neg); Ketones, Urine Neg (Neg); Leukocyte Esterase, Urine 3+ (Neg); Nitrite, Urine Neg (Neg); Protein, Urine 2+ (Neg); Specific Gravity, Urine 1.015 (1.003-1.022); Urobilinogen, Urine NORM (Normal)
[2023-05-26 16:27] LABS: Bacteria Mod /hpf; Squamous Epithelial Cells Few /hpf (Few); White Blood Cells, Urine TNTC /hpf (0-5)
== END | disposition home or self-care (01) ==
LOC: LAB SHORT 15:00 → LAB 15:00
PROVIDERS: Family Medicine
DX: N39.0 Urinary tract infection, site not specified (principal)
CPT/HCPCS: 81001; 87077; 87086; 87186

== ENCOUNTER → 2023-07-06 | Outpatient (CLI) | payer OTHER ==
[2023-07-06 18:02] LABS: Appearance, Urine Hazy (Clear); Bilirubin, Urine Neg (Neg); Blood, Urine Neg (Neg); Color, Urine Yellow (P-Yellow); Glucose Qualitative, Urine 3+ (Neg); Ketones, Urine Neg (Neg); Leukocyte Esterase, Urine 2+ (Neg); Nitrite, Urine Neg (Neg); Protein, Urine 1+ (Neg); Urobilinogen, Urine NORM (Normal)
[2023-07-06 18:11] LABS: Bacteria Many /hpf; Red Blood Cells, Urine 0-2 /hpf (0-2); Squamous Epithelial Cells Mod /hpf (Few); Transitional Epithelial Cells Rare /hpf (0-Rare); White Blood Cells, Urine 50-100 /hpf (0-5)
== END | disposition home or self-care (01) ==
LOC: LAB 16:42 → LAB SHORT 16:42
PROVIDERS: Family Medicine
DX: N39.0 Urinary tract infection, site not specified (principal)
CPT/HCPCS: 81001; 87077; 87086; 87186

== ENCOUNTER → 2023-10-19 | Outpatient (CLI) | payer OTHER ==
[2023-10-19 15:44] LABS: Appearance, Urine Clear (Clear); Bilirubin, Urine Neg (Neg); Blood, Urine 1+ (Neg); Glucose Qualitative, Urine 4+ (Neg); Ketones, Urine Neg (Neg); Leukocyte Esterase, Urine 1+ (Neg); Nitrite, Urine Neg (Neg); Protein, Urine 1+ (Neg); Urobilinogen, Urine NORM (Normal)
[2023-10-19 16:03] LABS: Bacteria Few /hpf; Color, Urine Pale Yellow (P-Yellow); Squamous Epithelial Cells Few /hpf (Few)
== END ==
LOC: LAB SHORT 14:48 → LAB 14:48
PROVIDERS: Family Medicine
DX: N39.0 Urinary tract infection, site not specified (principal)
CPT/HCPCS: 81001; 87077; 87086; 87186

== ENCOUNTER → 2024-05-30 | Outpatient (CLI) | payer OTHER | LOC: LAB SHORT 16:38 → LAB 16:38 | DX: N39.0 Urinary tract infection, site not specified (principal) | CPT/HCPCS: 87077; 87086; 87186 ==

== ENCOUNTER → 2024-06-21 | Outpatient (CLI) | payer OTHER | LOC: LAB 14:54 → LAB SHORT 14:54 | DX: E11.65 Type 2 diabetes mellitus with hyperglycemia (principal); Z79.4 Long term (current) use of insulin | CPT/HCPCS: 82043 ==

== ENCOUNTER → 2024-07-05 | Outpatient (CLI) | payer OTHER ==
[2024-07-05 15:31] LABS: Source, Urine Clean Catch
[2024-07-05 16:35] LABS: Appearance, Urine Clear (Clear); Bilirubin, Urine Neg (Neg); Blood, Urine Neg (Neg); Color, Urine Yellow (P-Yellow); Glucose Qualitative, Urine Neg (Neg); Ketones, Urine Neg (Neg); Leukocyte Esterase, Urine 2+ (Neg); Nitrite, Urine Neg (Neg); Protein, Urine Neg (Neg); Specific Gravity, Urine 1.015 (1.003-1.022); Urobilinogen, Urine NORM (Normal)
[2024-07-05 16:46] LABS: Bacteria Many /hpf; Red Blood Cells, Urine 0-2 /hpf (0-2); Squamous Epithelial Cells Rare /hpf (Few)
== END | disposition home or self-care (01) ==
LOC: LAB 15:29 → LAB SHORT 15:29
DX: N39.0 Urinary tract infection, site not specified (principal)
CPT/HCPCS: 81001; 87077; 87086; 87186

== ENCOUNTER → 2024-08-02 | Outpatient (CLI) | payer OTHER ==
[2024-08-02 18:50] LABS: Appearance, Urine Hazy (Clear); Bilirubin, Urine Neg (Neg); Blood, Urine Neg (Neg); Color, Urine Yellow (P-Yellow); Glucose Qualitative, Urine 1+ (Neg); Ketones, Urine Neg (Neg); Leukocyte Esterase, Urine 3+ (Neg); Nitrite, Urine Pos (Neg); Protein, Urine 1+ (Neg); Urobilinogen, Urine NORM (Normal)
[2024-08-02 18:58] LABS: Bacteria Many /hpf; Mucus Light (0-Heavy); Red Blood Cells, Urine 0-2 /hpf (0-2); Squamous Epithelial Cells Mod /hpf (Few); White Blood Cells, Urine 50-100 /hpf (0-5)
== END ==
LOC: LAB 17:10 → LAB SHORT 17:10
DX: N39.0 Urinary tract infection, site not specified (principal)
CPT/HCPCS: 81001; 87077; 87086; 87186

== ENCOUNTER → 2024-09-11 | Outpatient (CLI) | payer OTHER ==
[~2024-09-11] MED LIST changes: +ALEVE ARTHRITI100 GM TOP; +ALMACONE SUSPE355 ML PO; +ARTHRICREAM RUB85 GM TOP; +BARRIER CREAM TOP; +BISA10S PR; +CAPSAICIN TOP; -DICLOFENAC SOD100 GM TP; +DULCOLAX400 MG/5 M PO; +ELLURA200 MG PO; +FISH OIL 1,0001 EA10 PO; -FISH OIL 1,2001 EAC7 PO; +LOPERAMIDE1 MG/7.10 PO; +MIRALAX17 GM PO; +NYSTATIN15 GM TOP; +ROSUVASTATIN CA10 MG PO; +TRIPLE ANTIBIOT28 GM TOP; +VAGISIL TOP; +VITAMIN B121000 MCG PO; +VITAMIN D5000 UNIT PO; +Voltaren100 GM TOP
[2024-09-11 09:56] LABS: Source, Urine Clean Catch
[2024-09-11 11:51] LABS: Appearance, Urine Hazy (Clear); Bilirubin, Urine Neg (Neg); Blood, Urine 1+ (Neg); Color, Urine Yellow (P-Yellow); Glucose Qualitative, Urine Neg (Neg); Ketones, Urine Neg (Neg); Leukocyte Esterase, Urine 2+ (Neg); Nitrite, Urine Neg (Neg); Protein, Urine 1+ (Neg); Specific Gravity, Urine 1.015 (1.003-1.022); Urobilinogen, Urine NORM (Normal)
[2024-09-11 13:34] LABS: Amorphous Light (0-Heavy); Bacteria Many /hpf; Squamous Epithelial Cells Few /hpf (Few); White Blood Cells, Urine 25-50 /hpf (0-5)
== END ==
LOC: LAB 07:30 → LAB SHORT 07:30
DX: N39.0 Urinary tract infection, site not specified (principal)
CPT/HCPCS: 81001; 87077; 87086; 87186

== ENCOUNTER 2024-09-18 14:52 | Inpatient (IN) | payer OTHER ==
[~2024-09-18] VITALS: Ht 154.9 cm; Wt 62.9 kg
[~2024-09-18 14:52] MED LIST changes: -ALEVE ARTHRITI100 GM TOP; -ALMACONE SUSPE355 ML PO; -ARTHRICREAM RUB85 GM TOP; -BARRIER CREAM TOP; -BISA10S PR; -CAPSAICIN TOP; -DULCOLAX400 MG/5 M PO; -ELLURA200 MG PO; -LOPERAMIDE1 MG/7.10 PO; -MIRALAX17 GM PO; -NYSTATIN15 GM TOP; -ROSUVASTATIN CA10 MG PO; -TRIPLE ANTIBIOT28 GM TOP; -VAGISIL TOP; -VITAMIN B121000 MCG PO; -VITAMIN D5000 UNIT PO
[2024-09-18 19:34] LABS: BASOPHILS ABSOLUTE AUTO 0.01 K/mm3 (0.00-0.23); BASOPHILS PERCENT AUTO 0 % (0-2); EOSINOPHILS ABSOLUTE AUTO 0.06 K/mm3 (0.00-0.68); EOSINOPHILS PERCENT AUTO 1 % (0-6); Hematocrit 38.4 % (33.0-51.0); Hemoglobin 12.5 g/dL (11.5-16.0); IMMATURE GRAN ABSOLUTE AUTO 0.02 K/mm3 (0.00-0.10); IMMATURE GRAN PERCENT AUTO 0 % (0-1); LYMPHOCYTES ABSOLUTE AUTO 1.08 K/mm3 (0.84-5.20); LYMPHOCYTES PERCENT AUTO 16 % (21-46); MONOCYTES ABSOLUTE AUTO 0.46 K/mm3 (0.16-1.47); MONOCYTES PERCENT AUTO 7 % (4-13); Mean Corpuscular HGB Conc 32.6 g/dL (31.5-36.5); Mean Corpuscular Volume 95 fL (80-100); NEUTROPHILS ABSOLUTE AUTO 5.32 K/mm3 (1.96-9.15); NEUTROPHILS PERCENT AUTO 77 % (41-73); Platelet Count 175 K/mm3 (150-400); RDW Coefficient Variation 13.3 % (11.7-14.2); RDW Standard Deviation 46.9 fL (35.1-46.3); Red Blood Cell Count 4.03 M/mm3 (3.80-5.20); White Blood Cell Count 6.95 K/mm3 (4.00-11.30)
[2024-09-18 19:53] LABS: Calcium, Blood 8.9 mg/dL (8.5-10.1); Creatinine, Blood 1.43 mg/dL (0.40-1.00); Potassium, Blood 4.6 mmol/L (3.5-5.5)
[2024-09-18] MEDS ORDERED: CefOXitin Sodium 1,000 MG in NS 50 ML IV ONE (21:00)
[2024-09-18] MEDS ORDERED: Ondansetron HCl 2 MG / ML 2ML Vial IV PRN (21:25)
[2024-09-18] MEDS ORDERED: FLU VACC TS2024-25(6MOS UP)/PF 45 MCG/0.5 ML SYRINGE IM ONE (21:30)
--- NOTE | 2024-09-19 00:20 | NUR ---
TRANSFER: REPORT RECEIVED FROM ESTELLE (ADMINISTRATIVE ACCOUNTANT) AND PT T/F VIA GURNEY TO ROOM 327. SHE'S A/OX3 (PERSON, PLACE, SITUATION) AND WAS ORIENTED TO ROOM AND CALL SYSTEM. PT C/O GENERALIZED WEAKNESS AND REQ'S BEDPAN USE AT PRESENT BUT IS AMBULATORY W/FWW AT BASELINE. BED ALARM ON FOR SAFETY. IV PATENT AND SL'D W/IV ABX RECEIVED IN ER. PLAN FOR UA SPECIMEN COLLECTION AND TELEMETRY RX'D. WCTM AND REPORT TO MD PEREZ.
[2024-09-19] MEDS ORDERED: ROSUVASTATIN CA10 MG PO (00:35)
[2024-09-19 00:53] VITALS: BP 126/63
[2024-09-19 01:22] LABS: Source, Urine Voided
[2024-09-19 01:25] LABS: Bilirubin, Urine Neg (Neg); Blood, Urine Neg (Neg); Glucose Qualitative, Urine Neg (Neg); Ketones, Urine Neg (Neg); Leukocyte Esterase, Urine 2+ (Neg); Nitrite, Urine Neg (Neg); Protein, Urine Neg (Neg); Specific Gravity, Urine 1.005 (1.003-1.022); Urobilinogen, Urine NORM (Normal)
[2024-09-19 01:30] LABS: Appearance, Urine Clear (Clear); Color, Urine Pale Yellow (P-Yellow)
[2024-09-19 01:31] LABS: Bacteria Few /hpf; Red Blood Cells, Urine Not Seen /hpf (0-2); Squamous Epithelial Cells Few /hpf (Few); White Blood Cells, Urine 0-2 /hpf (0-5)
[2024-09-19 02:20] VITALS: BP 128/89
[2024-09-19] MEDS ORDERED: FentaNYL Citrate 50 MCG/ML 2 ML Injection IV PRN (02:40)
--- NOTE | 2024-09-19 05:50 | NUR ---
BORDER MEASURER SUMMARY: PT ADMITTED FOR UTI WITH IV ABX RECEIVED IN ED. SHE C/O DYSURIA, PELVIC / FLANK PAIN, FREQUENCY WITH URGENCY. PT OBSERVED TO BE SHAKING AND GUARDING PELVIC AREA. MD NOTIFIED OF PAIN, FENTANYL RX RECEIVED AND PT MEDICATED; EFFECTIVE. URINE SPECIMEN OBTAINED AND SENT; CULTURE PENDING. PT AMBULATES WITH WALKER AT BASELINE, BUT REQUESTED BED CORDOVA DUE TO GENERALIZED WEAKNESS. PT MOSTLY CONTINENT WITH X1 URGENCY INCONTNINENT EPISODE, ATTENDS AND LINEN CHANGED PRN. PT ORIENTED TO SELF, PLACE AND SITUATION. CALLS APPROPRIATELY TO SPECIFY NEEDS. BED ALARM ON FOR SAFETY. PT ABLE TO REPOSITION SELF IN BED. NSR ON TELE IN THE 70'S. VSS, AFEBRILE. NO ACUTE CHANGES. CALL LIGHT IN REACH. CARES CONTINUE ORDERED.
[2024-09-19 06:03] LABS: BASOPHILS ABSOLUTE AUTO 0.02 K/mm3 (0.00-0.23); BASOPHILS PERCENT AUTO 0 % (0-2); EOSINOPHILS ABSOLUTE AUTO 0.04 K/mm3 (0.00-0.68); EOSINOPHILS PERCENT AUTO 1 % (0-6); Hematocrit 34.4 % (33.0-51.0); Hemoglobin 11.2 g/dL (11.5-16.0); IMMATURE GRAN ABSOLUTE AUTO 0.03 K/mm3 (0.00-0.10); IMMATURE GRAN PERCENT AUTO 1 % (0-1); LYMPHOCYTES ABSOLUTE AUTO 1.08 K/mm3 (0.84-5.20); LYMPHOCYTES PERCENT AUTO 19 % (21-46); MONOCYTES ABSOLUTE AUTO 0.42 K/mm3 (0.16-1.47); MONOCYTES PERCENT AUTO 8 % (4-13); Mean Corpuscular HGB 30.6 pg (26.0-34.0); Mean Corpuscular HGB Conc 32.6 g/dL (31.5-36.5); Mean Corpuscular Volume 94 fL (80-100); NEUTROPHILS ABSOLUTE AUTO 4.01 K/mm3 (1.96-9.15); NEUTROPHILS PERCENT AUTO 72 % (41-73); Platelet Count 163 K/mm3 (150-400); RDW Coefficient Variation 13.2 % (11.7-14.2); RDW Standard Deviation 45.6 fL (35.1-46.3); Red Blood Cell Count 3.66 M/mm3 (3.80-5.20)
[2024-09-19 06:42] LABS: Albumin, Blood 3.2 g/dL (3.4-5.0); Bilirubin, Total 0.5 mg/dL (0.1-1.0); Bun/Creatinine Ratio 19.3 (12.0-20.0); Calcium, Blood 8.9 mg/dL (8.5-10.1); Creatinine, Blood 1.45 mg/dL (0.40-1.00); Globulin, Blood 3.2 g/dL (2.2-4.0); Magnesium, Blood 2.1 mg/dL (1.6-2.4); Potassium, Blood 4.4 mmol/L (3.5-5.5); Total Protein, Blood 6.4 g/dL (6.4-8.2)
[2024-09-19 07:59] VITALS: BP 118/61
[2024-09-19] MEDS ORDERED: CefOXitin Sodium 1,000 MG in NS 50 ML IV SCH (08:00)
[2024-09-19] MEDS ORDERED: Enoxaparin 30 MG/0.3 ML SYR SC SCH (09:00)
[2024-09-19] MEDS ORDERED: Enoxaparin 40 MG/0.4 ML SYR SC SCH (09:00)
[2024-09-19] MEDS ORDERED: Lactobacil 2-S.Thermo-Bifido 1 1 Cap PO SCH (09:00)
[2024-09-19] MEDS ORDERED: Meropenem 1,000 MG in NS 100 ML IV SCH (10:30)
[2024-09-19] MEDS ORDERED: NS 250 ML IV PRN (10:40)
[2024-09-19] MEDS ORDERED: Acetaminophen 325 MG TABLET PO SCH (15:49)
[2024-09-19] MEDS ORDERED: Capsaicin 0.025% Cream TOP SCH ×2 (15:50→15:54)
[2024-09-19] MEDS ORDERED: TROLAMINE SALICYLATE 10% CREAM 141 GM TUBE TOP SCH (15:54)
[2024-09-19] MEDS ORDERED: Diclofenac Sodium 100 GM TUBE TOP SCH (15:54)
[2024-09-19] MEDS ORDERED: HyDROXyzine HCl 25 MG Tab PO ONE (15:55)
[2024-09-19] MEDS ORDERED: ELLURA200 MG PO (16:02)
[2024-09-19] MEDS ORDERED: VITAMIN D5000 UNIT PO (16:03)
[2024-09-19] MEDS ORDERED: DIAPER RASH113 G1 TOP (16:04)
[2024-09-19] MEDS ORDERED: CAPSAICIN TOP (16:06)
[2024-09-19] MEDS ORDERED: ARTHRICREAM RUB85 GM TOP (16:06)
[2024-09-19 16:25] VITALS: BP 145/71
--- NOTE | 2024-09-19 18:07 | NUR ---
PT C/O PAIN TODAY. GAVE TYLENOL, FENTANYL. DR GOT HER HOME MED LOTIONS FOR PAIN. I JUST GOT IN FROM [facility] AND APPLIED THIS AMBER. ALSO START MIN DOSE ATARAX. PT SEEMS SOME MORE RELEIVED THIS AMBER AFTER THIS. ABX CONTINUE. NO FURTHER CONCERNS NOTED. BED IN LOW POSITION, CALL LITE IN REACH, CALLS APPROP
[2024-09-19 20:45] VITALS: BP 117/59
[2024-09-19] MEDS ORDERED: Insulin Glargine-Yfgn 100 Unit/mL 3 ML SYR SC SCH (21:00)
[2024-09-19] MEDS ORDERED: Pregabalin 25 MG Capsule PO SCH (21:00)
[2024-09-20] MEDS ORDERED: VITAMIN B121000 MCG PO (02:03)
[2024-09-20] MEDS ORDERED: BISA10S PR (02:05)
[2024-09-20] MEDS ORDERED: ALMACONE SUSPE355 ML PO (02:06)
[2024-09-20] MEDS ORDERED: LOPERAMIDE1 MG/7.10 PO (02:07)
[2024-09-20] MEDS ORDERED: DULCOLAX400 MG/5 M PO (02:08)
[2024-09-20] MEDS ORDERED: ONDA4ODT MM (02:08)
[2024-09-20] MEDS ORDERED: BARRIER CREAM TOP (02:10)
[2024-09-20] MEDS ORDERED: ALEVE ARTHRITI100 GM TOP (02:10)
[2024-09-20] MEDS ORDERED: TRIPLE ANTIBIOT28 GM TOP (02:11)
[2024-09-20] MEDS ORDERED: MIRALAX17 GM PO (02:11)
[2024-09-20] MEDS ORDERED: NYSTATIN15 GM TOP (02:12)
[2024-09-20] MEDS ORDERED: VAGISIL TOP (02:16)
--- NOTE | 2024-09-20 03:46 | NUR ---
PRELIMINARY SCHOOL PSYCHOLOGIST SUMMARY: PT A&O TO SELF, PLACE AND SITUATION. INTERMITTENT CONFUSION. HX OF SCHIZOPHRENIA. PLEASANT AND COOPERATIVE WITH CARE. DENIES PAIN. NO S/S OF PAIN. PT DOES HAVE TENDERNESS WITH MORENO CARE WHICH RESOLVES WHEN CARE IS DONE. UTI TX CONTINUES. PT HAS INTERMITTENT INCONTINENCE. ABLE TO USE BED CORDOVA WHEN OFFERED AND HAS CONTINENT EPISODES. VSS. NO ACUTE CHANGES THIS SHIFT. TURNING Q2HRS. CALL LIGHT IN REACH. BED IN LOWEST POSITION. CARES CONTINUE ORDERED.
[2024-09-20 04:02] VITALS: BP 117/59
[2024-09-20] MEDS ORDERED: Pantoprazole Sodium 20 MG Tab PO SCH (06:00)
[2024-09-20 06:07] LABS: BASOPHILS ABSOLUTE AUTO 0.02 K/mm3 (0.00-0.23); BASOPHILS PERCENT AUTO 0 % (0-2); EOSINOPHILS ABSOLUTE AUTO 0.05 K/mm3 (0.00-0.68); EOSINOPHILS PERCENT AUTO 1 % (0-6); Hematocrit 34.5 % (33.0-51.0); Hemoglobin 11.2 g/dL (11.5-16.0); IMMATURE GRAN ABSOLUTE AUTO 0.01 K/mm3 (0.00-0.10); IMMATURE GRAN PERCENT AUTO 0 % (0-1); LYMPHOCYTES ABSOLUTE AUTO 1.62 K/mm3 (0.84-5.20); LYMPHOCYTES PERCENT AUTO 33 % (21-46); MONOCYTES PERCENT AUTO 10 % (4-13); Mean Corpuscular HGB 30.6 pg (26.0-34.0); Mean Corpuscular HGB Conc 32.5 g/dL (31.5-36.5); Mean Corpuscular Volume 94 fL (80-100); Mean Platelet Volume 10.8 fL (9.1-12.4); NEUTROPHILS ABSOLUTE AUTO 2.65 K/mm3 (1.96-9.15); NEUTROPHILS PERCENT AUTO 55 % (41-73); Platelet Count 170 K/mm3 (150-400); RDW Coefficient Variation 13.3 % (11.7-14.2); Red Blood Cell Count 3.66 M/mm3 (3.80-5.20); White Blood Cell Count 4.85 K/mm3 (4.00-11.30)
[2024-09-20 06:49] LABS: Bun/Creatinine Ratio 17.1 (12.0-20.0); Calcium, Blood 9.1 mg/dL (8.5-10.1); Creatinine, Blood 1.52 mg/dL (0.40-1.00); Potassium, Blood 4.2 mmol/L (3.5-5.5)
[2024-09-20 07:35] VITALS: BP 114/55
[2024-09-20] MEDS ORDERED: Rosuvastatin Calcium 10 MG Tab PO SCH (09:00)
[2024-09-20] MEDS ORDERED: ARIPiprazole 5 MG Tab PO SCH (09:00)
[2024-09-20] MEDS ORDERED: Clopidogrel Bisulfate 75 MG Tab PO SCH (09:00)
[2024-09-20] MEDS ORDERED: Lisinopril 5 MG Tab PO SCH (09:00)
--- NOTE | 2024-09-20 15:13 | NUR ---
PT TREVER KHAN CONTACTED UNIT FOR UPDATE VIA PHONE CALL, PT GAVE RN PERMISSION TO DISCUSS CARE AND STATUS WITH ERIN. UPDATE PROVIDED AND QUESTIONS ANSWERED.
[2024-09-20 15:36] VITALS: BP 109/54
--- NOTE | 2024-09-20 16:54 | NUR ---
SHIFT SUMMARY PT A/O TO SELF, STATE, AND SITUATION. FLIGHT OF IDEAS, UNRELATED TOPICS AT TIMES. PT COOPERATIVE AND PLEASANT. PRE REPORTS PAIN TO BLE AND MID BACK, MEDICATED PER EMAR. PT REFUSED TOPICAL CREAMS FOR LEGS DUE TO BURNING SENSATION WHEN APPLIED YESTERDAY. PT CONTINUES TO REPORT BURNING AND DISCOMFORT WITH URINATION. UP WITH MINIMAL ASSIST AND ABLE TO AMBULATE WITH FWW PER PT. VSS. HEEL PROTECTORS APPLIED DUE TO ERYTHEMA NOTED TO BILATERAL HEELS. UPDATED PT TREVER KHAN WITH PT PERMISSION. PT RESTING IN HOSPITAL BED WITH BED IN LOWEST POSITION, CALL LIGHT WITHIN REACH. PT USES CALL LIGHT APPROPRIATELY.
[2024-09-20 19:43] VITALS: BP 125/103
[2024-09-21 03:36] VITALS: BP 102/53
--- NOTE | 2024-09-21 04:06 | NUR ---
SHIFT SUMMARY ALERT ORIENTED X2, PLEASANT,CALM COOPERATIVE,GRIMACING FREQUENTLY FIRST PART OF SHIFT C/O PAIN IN HER VAGINAL AREA, NO REDNESS NOTED, UTI SX-GIVEN A DOSE OFPRN FENTANYL AND WAS MONITORED CLOSELY, MED WAS EFFECTIVE FOR PAIN BP WAS SOFT BUT ADEQUAT EAND FLUIDS WERE ENCOURAGED W/A.HAS BEEN AFEBRILE, HAS BEEN INCONTINENT OF LG VOLUME URINBE AND USED BEDPAIN X1 HAS NOT AMBULATED THSI SHIFT, RESTED WELL OVERNIGHT ,HS CBG 150,
[2024-09-21 08:01] VITALS: BP 119/57
--- NOTE | 2024-09-21 09:00 | NUR ---
Pt laying in bed awake, watching tv, a/ox1-2, pleasant and cooperative with care, follows commands well, deneis pain at this time, lungs are clear t/o, resp even and unlabored, no cough noted, hrr, murmur noted, radial pulses +2, pp+1, no edema noted, cap refill <3 sec, vs stable, afebrile, piv to lfa site is clear and patent but is complaining it hurts, will have power glide placed by charge nurse, she was notified, btx4, abd flat soft nontender, briefs in place for bowel/bladder incont, skin has pink sacral area, but no breakdown, unable to move b/l le, heel protectors in place, britt, call light in reach.
[2024-09-21 10:29] LABS: BASOPHILS ABSOLUTE AUTO 0.02 K/mm3 (0.00-0.23); BASOPHILS PERCENT AUTO 0 % (0-2); EOSINOPHILS ABSOLUTE AUTO 0.07 K/mm3 (0.00-0.68); EOSINOPHILS PERCENT AUTO 1 % (0-6); Hematocrit 36.8 % (33.0-51.0); Hemoglobin 11.9 g/dL (11.5-16.0); IMMATURE GRAN ABSOLUTE AUTO 0.07 K/mm3 (0.00-0.10); IMMATURE GRAN PERCENT AUTO 1 % (0-1); LYMPHOCYTES ABSOLUTE AUTO 1.38 K/mm3 (0.84-5.20); LYMPHOCYTES PERCENT AUTO 23 % (21-46); MONOCYTES ABSOLUTE AUTO 0.43 K/mm3 (0.16-1.47); MONOCYTES PERCENT AUTO 7 % (4-13); Mean Corpuscular HGB 30.7 pg (26.0-34.0); Mean Corpuscular HGB Conc 32.3 g/dL (31.5-36.5); Mean Corpuscular Volume 95 fL (80-100); NEUTROPHILS ABSOLUTE AUTO 3.92 K/mm3 (1.96-9.15); NEUTROPHILS PERCENT AUTO 67 % (41-73); Platelet Count 178 K/mm3 (150-400); RDW Coefficient Variation 13.5 % (11.7-14.2); RDW Standard Deviation 47.5 fL (35.1-46.3); Red Blood Cell Count 3.88 M/mm3 (3.80-5.20); White Blood Cell Count 5.89 K/mm3 (4.00-11.30)
[2024-09-21 10:43] LABS: Albumin/Globulin Ratio 0.9 (0.8-1.8); Bilirubin, Total 0.5 mg/dL (0.1-1.0); Bun/Creatinine Ratio 18.1 (12.0-20.0); Creatinine, Blood 1.77 mg/dL (0.40-1.00); Globulin, Blood 3.3 g/dL (2.2-4.0); Potassium, Blood 4.4 mmol/L (3.5-5.5); Total Protein, Blood 6.3 g/dL (6.4-8.2)
[2024-09-21 16:28] VITALS: BP 106/59
--- NOTE | 2024-09-21 18:51 | NUR ---
pt got up to chair with PT, did well transfering, complains of leg pain, has some confused thoughts, no further changes this shift. call light in reach.
[2024-09-21 19:27] VITALS: BP 123/65
[2024-09-21] MEDS ORDERED: Meropenem 500 MG in NS 100 ML IV SCH (21:00)
--- NOTE | 2024-09-22 02:28 | NUR ---
SHIFT SUMMARY A&OX2-3, REPETITIVE STATEMENTS AT TIMES, PLEASANT,COOPERATIVE. RESTED WELL, VSS, TOILETING OFFERED W/A BUT DECLINES INCONTINENT EPISODE X2/PERICARE, SKIN INTACT,IV MEREPENUM FOR UTI ONGOING & NO S/SX ADVERSE REACTIONS, TAKES PILLS WHOLE W/O DIFFICULTY, FLUIDS ENCOURAGED W/A.
[2024-09-22 05:16] LABS: BASOPHILS ABSOLUTE AUTO 0.02 K/mm3 (0.00-0.23); BASOPHILS PERCENT AUTO 0 % (0-2); EOSINOPHILS ABSOLUTE AUTO 0.09 K/mm3 (0.00-0.68); EOSINOPHILS PERCENT AUTO 2 % (0-6); Hematocrit 33.3 % (33.0-51.0); Hemoglobin 11.1 g/dL (11.5-16.0); IMMATURE GRAN ABSOLUTE AUTO 0.02 K/mm3 (0.00-0.10); IMMATURE GRAN PERCENT AUTO 0 % (0-1); LYMPHOCYTES ABSOLUTE AUTO 1.31 K/mm3 (0.84-5.20); LYMPHOCYTES PERCENT AUTO 27 % (21-46); MONOCYTES ABSOLUTE AUTO 0.43 K/mm3 (0.16-1.47); MONOCYTES PERCENT AUTO 9 % (4-13); Mean Corpuscular HGB 31.5 pg (26.0-34.0); Mean Corpuscular HGB Conc 33.3 g/dL (31.5-36.5); Mean Corpuscular Volume 95 fL (80-100); Mean Platelet Volume 10.7 fL (9.1-12.4); NEUTROPHILS ABSOLUTE AUTO 2.94 K/mm3 (1.96-9.15); NEUTROPHILS PERCENT AUTO 61 % (41-73); Platelet Count 157 K/mm3 (150-400); RDW Coefficient Variation 13.5 % (11.7-14.2); RDW Standard Deviation 46.6 fL (35.1-46.3); Red Blood Cell Count 3.52 M/mm3 (3.80-5.20); White Blood Cell Count 4.81 K/mm3 (4.00-11.30)
[2024-09-22 05:47] LABS: Bun/Creatinine Ratio 21.5 (12.0-20.0); Creatinine, Blood 1.91 mg/dL (0.40-1.00); Magnesium, Blood 2.2 mg/dL (1.6-2.4); Phosphorus, Blood 3.5 mg/dL (2.5-4.9); Potassium, Blood 4.3 mmol/L (3.5-5.5)
[2024-09-22] MEDS ORDERED: Lactated Ringer's 1,000 ML IV SCH (07:40)
[2024-09-22 08:06] VITALS: BP 112/57
--- NOTE | 2024-09-22 10:50 | NUR ---
DR MARTÍNEZ AND DR [place] ROUNDED, ONE BAG OF LR TO INFUSE, PATIENT NEEDS 7 DAYS OF MEROPENEM, POSSIBLE DISCHARGE NEXT WEEK, PATIENT ALERT AND ORIENTED 2-3, CONFUSED ABOUT HOSPITAL NOW VS [facility], PLEASANT TO CARE, GOOD APPETITE, CALL LIGHT WITH IN REACH
[2024-09-22 15:33] VITALS: BP 110/63
[2024-09-22] MEDS ORDERED: Insulin Human Lispro 100 Units/ML 3ML Syringe SC SCH (16:30)
--- NOTE | 2024-09-22 18:17 | NUR ---
NO ACUTE CHANGES, TO STAY FOR SEVEN DAYS OF MEROPENEN, CLEARLY MAKES NEEDS KNOWN, PLEASANT TO CARE, CALL LIGHT WITH IN REACH
[2024-09-22 19:43] VITALS: BP 128/51
[2024-09-23 03:35] VITALS: BP 123/45
--- NOTE | 2024-09-23 04:22 | NUR ---
SHIFT SUMMARY A&0X2, COOPERATIVE, TEARFUL AT TIMES, FREQUENT REASSURANCE GIVEN.NOTED TALKS TO SELF AT TIMES, NEGATIVE SELF TALK AT TIMES, ASKS REPETITIVE QUESTIONS SUCH "ARE YOU GOING TO HOOK ME BACK UP?"(TO IV) SEEMING TO FORGET ANSWERS. AFEBRILE BPs 123/45 & 128/51 ,HRs 70S CBG 169 @ HS. WAS UP TO BEDSIDE COMMODE X1 THEN INCONTINENT DURING SLEEP, SKIN INTACT, MOISTURE BARRIER W/PERICARE, HEELS OFF PRESSURE. IV ANTIBIOTIC(MEROPENUM) ONGOING & NO ADVERSE REACTIONS NOTED. MIDLINE INTACT & PATENT IN RUE.
[2024-09-23 06:37] LABS: Hematocrit 32.7 % (33.0-51.0); Hemoglobin 10.8 g/dL (11.5-16.0); Mean Corpuscular HGB 30.9 pg (26.0-34.0); Mean Corpuscular Volume 93 fL (80-100); Mean Platelet Volume 11.5 fL (9.1-12.4); Platelet Count 170 K/mm3 (150-400); RDW Coefficient Variation 13.2 % (11.7-14.2); RDW Standard Deviation 45.3 fL (35.1-46.3); White Blood Cell Count 4.36 K/mm3 (4.00-11.30)
[2024-09-23 06:58] LABS: Bun/Creatinine Ratio 23.6 (12.0-20.0); Calcium, Blood 8.8 mg/dL (8.5-10.1); Creatinine, Blood 1.65 mg/dL (0.40-1.00); Magnesium, Blood 2.2 mg/dL (1.6-2.4)
[2024-09-23 07:54] VITALS: BP 109/51
[2024-09-23] MEDS ORDERED: NS 500 ML IV SCH (08:15)
[2024-09-23] MEDS ORDERED: TraMADol HCl 50 MG Tab PO PRN (12:00)
[2024-09-23 15:50] VITALS: BP 92/63
--- NOTE | 2024-09-23 17:10 | NUR ---
NO ACUTE CHANGES, ALERT AND ORIENTED X2-3, FORGETFUL AND REPETITVE, EASILY RE ORIENTS, POOR SHORT TERM MEMORY, PATIENT NOT WANTING TYLENOL, STARTED TRAMADOL AND PATIENT REPORTS BETTER PAIN COVERAGE WITH TRAMADOL, PATIENT REPROTS LEGS FEEL HOT, ICE PACKS TO KIMBERLYN LOWER LEGS, PATIENT STAYING FOR IV MEROPENEM, CALL LIGHT WITH IN REACH
[2024-09-23 21:50] VITALS: BP 107/62
[2024-09-23 22:30] VITALS: BP 118/53
[2024-09-24 03:25] VITALS: BP 96/51
--- NOTE | 2024-09-24 04:36 | NUR ---
PT IS A PLEASANTLY CONFUSED FULL CODE WHO IS HERE FOR UTI. PT WILL RETURN HOME TO [place] ONCE SHES COMPLETE W/ANTIBIOTICS. PT HAS BOUTS OF CONFUSION AND DOES NOT KNOW WHERE SHE IS AT TIMES. PT HAS BEEN COOPERATIVE AND IS INCONT IN BED AND NEEDS CHANGED AND REPOSITIONED. SOMETIMES PT WILL USE A BEDPAN. PT HAD A SMALL BM TONIGHT. PT HAS MULTIPLE PRESCRIBED CREAMS FOR LEG PAIN.PT ALSO HAS HEEL PROTECTORS ON LEGS. PT HAS CALL LIGHT IN REACH.
[2024-09-24 06:21] LABS: Hematocrit 32.6 % (33.0-51.0); Hemoglobin 10.5 g/dL (11.5-16.0); Mean Corpuscular HGB 30.7 pg (26.0-34.0); Mean Corpuscular HGB Conc 32.2 g/dL (31.5-36.5); Mean Corpuscular Volume 95 fL (80-100); Mean Platelet Volume 10.8 fL (9.1-12.4); Platelet Count 149 K/mm3 (150-400); RDW Coefficient Variation 13.3 % (11.7-14.2); RDW Standard Deviation 46.7 fL (35.1-46.3); Red Blood Cell Count 3.42 M/mm3 (3.80-5.20)
[2024-09-24 07:00] LABS: Bun/Creatinine Ratio 25.3 (12.0-20.0); Calcium, Blood 8.4 mg/dL (8.5-10.1); Creatinine, Blood 1.58 mg/dL (0.40-1.00); Magnesium, Blood 2.1 mg/dL (1.6-2.4); Phosphorus, Blood 3.6 mg/dL (2.5-4.9); Potassium, Blood 4.5 mmol/L (3.5-5.5)
[2024-09-24 08:10] VITALS: BP 106/52
[2024-09-24 15:30] VITALS: BP 99/48
--- NOTE | 2024-09-24 16:56 | NUR ---
SHIFT SUMMARY PT AXO X1-2, PLEASANT AND COOPERATIVE WITH CARE THOUGH FLIGHT OF IDEAS AND CRYING AT TIMES. VSS THOUGH AFTERNOON BP WAS 99/48. PT ENCOURAGED TO BE UP OOB AND INTO A CHAIR, PT REFUSED EVERY TIME. PT INSISTED ON STAYING IN BED AND SLEEPING. PT MEDICATED FOR PAIN PER EMAR. BED IN LOW POSITION, CALL LIGHT WITHIN REACH. PT REFUSED BREAKFAST.
[2024-09-24 21:02] VITALS: BP 106/79
[2024-09-25 02:11] VITALS: BP 109/53
--- NOTE | 2024-09-25 03:39 | NUR ---
ADVOCACY DIRECTOR SUMMARY VSS. AFEBRILE. IV ANTIBIOTICS INFUSING PER MD ORDERS - SEE MAR FOR DETAILS. ALERT AND ORIENTED X 2-3. UP WITH ASSIST, REFUSED TO USE BEDSIDE COMMODE, REQUESTED BEDPAN INSTEAD. ACCUCHECK AT HS 119. ABLE TO REPOSITION SELF IN BED WITHOUT ASSIST, ENCOURAGED TO REPOSITION SELF BUT SEEMS HESITANT TO DO SO. HAS BEEN RESTING QUIETLY WITH OCCASIONAL INTERRUPTION. CALL LIGHT IN REACH, RAILS UP X 2 AND BED IN LOW POSITION FOR SAFETY. REMAINS ON CONTACT ISOLATION FOR ESBL. WILL CONTINUE TO MONITOR
[2024-09-25 06:37] LABS: Hemoglobin 10.7 g/dL (11.5-16.0); Mean Corpuscular HGB 31.2 pg (26.0-34.0); Mean Corpuscular HGB Conc 33.4 g/dL (31.5-36.5); Mean Corpuscular Volume 93 fL (80-100); Platelet Count 146 K/mm3 (150-400); RDW Coefficient Variation 13.3 % (11.7-14.2); RDW Standard Deviation 45.5 fL (35.1-46.3); Red Blood Cell Count 3.43 M/mm3 (3.80-5.20); White Blood Cell Count 5.18 K/mm3 (4.00-11.30)
[2024-09-25 07:05] LABS: Bun/Creatinine Ratio 29.4 (12.0-20.0); Calcium, Blood 8.4 mg/dL (8.5-10.1); Creatinine, Blood 1.43 mg/dL (0.40-1.00); Magnesium, Blood 2.4 mg/dL (1.6-2.4); Potassium, Blood 4.2 mmol/L (3.5-5.5)
[2024-09-25 08:03] VITALS: BP 94/50
[2024-09-25 08:30] VITALS: BP 100/50
[2024-09-25] MEDS ORDERED: Meropenem 1,000 MG in NS 100 ML IV SCH (09:00)
[2024-09-25 10:43] VITALS: BP 94/42
[2024-09-25 15:45] VITALS: BP 126/59
--- NOTE | 2024-09-25 18:27 | NUR ---
PATIENT IS ALERT AND ORIENTED WITH SOME FORGETFULLNESS. CALLS APPROPRIATELY. UP TO THE BSC WITH 1PA. URINARY URGENCY. HYPOTENSIVE. LISINOPRL HELD THIS MORNING. WILL CONTINUE TO MONITOR
[2024-09-25 20:35] VITALS: BP 125/62
[2024-09-26 02:51] VITALS: BP 103/69
--- NOTE | 2024-09-26 04:42 | NUR ---
BLE numbness + generalized weakness Pt woke up around 0330 c/o numbness in both legs. She was weak all over R=L, very little hospitality host strength. No one sided facial droop but she could barely smile, unsure of baseline strength. AOx4, no slur, VSS, good pulses in all 4 extremeties. I called the hospitalist who advised to continue to monitor. I repositioned pt hopefully decompressing a nerve, no improvement so far. Pt currently sleeping comfortably.
[2024-09-26 05:08] LABS: Hematocrit 31.7 % (33.0-51.0); Hemoglobin 10.4 g/dL (11.5-16.0); Mean Corpuscular HGB 30.9 pg (26.0-34.0); Mean Corpuscular HGB Conc 32.8 g/dL (31.5-36.5); Mean Corpuscular Volume 94 fL (80-100); Mean Platelet Volume 10.7 fL (9.1-12.4); Platelet Count 144 K/mm3 (150-400); RDW Coefficient Variation 13.2 % (11.7-14.2); RDW Standard Deviation 45.1 fL (35.1-46.3); Red Blood Cell Count 3.37 M/mm3 (3.80-5.20); White Blood Cell Count 4.63 K/mm3 (4.00-11.30)
[2024-09-26 05:55] LABS: Albumin, Blood 2.8 g/dL (3.4-5.0); Albumin/Globulin Ratio 0.9 (0.8-1.8); Bilirubin, Total 0.3 mg/dL (0.1-1.0); Bun/Creatinine Ratio 28.3 (12.0-20.0); Calcium, Blood 8.9 mg/dL (8.5-10.1); Creatinine, Blood 1.52 mg/dL (0.40-1.00); Globulin, Blood 3.1 g/dL (2.2-4.0); Magnesium, Blood 2.3 mg/dL (1.6-2.4); Phosphorus, Blood 2.8 mg/dL (2.5-4.9); Potassium, Blood 4.9 mmol/L (3.5-5.5); Total Protein, Blood 5.9 g/dL (6.4-8.2)
--- NOTE | 2024-09-26 06:03 | NUR ---
Shift Summary Pt c/o leg pain at the start of shift, medicated per EMAR. She declined various creams saying they don't help. Around 0330 she woke up saying both her legs were numb. She was also weaker than baseline. Tried repositioning to relieve pressure on nerves which did not help. I called the hospitalist who examined her and he ordered labs. See previous nursing note for more information. Pt currently sleeping comfortably. AOx4, VSS
[2024-09-26 07:37] VITALS: BP 106/51
[2024-09-26 15:15] VITALS: BP 127/61
--- NOTE | 2024-09-26 16:33 | NUR ---
TRANSFER SUMMARY PATIENT WITH PAIN TODAY, RESOLVES WITH ULTRAM. SHE DENIES ANY OTHER ISSUES. PHONE REPORT GIVEN TO SANDRA GARCIA. PATIENT TRANSPORTED VIA [facility] AT 1530 WITH [facility] PROVIDER.
== END 2024-09-26 15:43 | disposition home health service (06) | DRG 690 ==
LOC: ER 14:52 → ERHOLD 21:26 → MEDS 21:26 → ENPENDDIS 09-26 11:40 → MEDS 09-26 15:43
PROVIDERS: Emergency Medicine; Hospitalist; Student in an Organized Health Care Education/Training Program; ADMIT Student in an Organized Health Care Education/Training Program
DX: N39.0 Urinary tract infection, site not specified (principal); Z16.24 Resistance to multiple antibiotics; B96.1 Klebsiella pneumoniae [K. pneumoniae] as the cause of diseases classified elsewhere; E11.22 Type 2 diabetes mellitus with diabetic chronic kidney disease; E78.5 Hyperlipidemia, unspecified; E86.0 Dehydration; E87.8 Other disorders of electrolyte and fluid balance, not elsewhere classified; F20.9 Schizophrenia, unspecified; N18.32 Chronic kidney disease, stage 3b; F41.9 Anxiety disorder, unspecified; Z88.6 Allergy status to analgesic agent; Z88.8 Allergy status to other drugs, medicaments and biological substances; Z79.02 Long term (current) use of antithrombotics/antiplatelets; Z79.899 Other long term (current) drug therapy; Z79.4 Long term (current) use of insulin; I12.9 Hypertensive chronic kidney disease with stage 1 through stage 4 chronic kidney disease, or unspecified chronic kidney disease; G89.29 Other chronic pain; Z86.73 Personal history of transient ischemic attack (TIA), and cerebral infarction without residual deficits; Z90.49 Acquired absence of other specified parts of digestive tract
CPT/HCPCS: 36415; 80048; 80053; 81001; 82947; 83735; 84100; 85025; 85027; 87077; 87086; 87186; 96365; 96366; 96367; 96372; 96375; 96376; 97110; 97116; 97162; 97530; 99284-25; A9270; C1751; G0378; J0694; J1650; J1815; J2185; J2470; J3010; J7040; J7050; J7120

== ENCOUNTER 2024-10-01 17:15 | Emergency (ER) | payer OTHER ==
[~2024-10-01] VITALS: Ht 154.9 cm; Wt 74.8 kg
[~2024-10-01 17:15] MED LIST changes: +ALEVE ARTHRITI100 GM TOP; +ALMACONE SUSPE355 ML PO; +ARTHRICREAM RUB85 GM TOP; +BARRIER CREAM TOP; +BISA10S PR; +CAPSAICIN TOP; +DULCOLAX400 MG/5 M PO; +ELLURA200 MG PO; +LOPERAMIDE1 MG/7.10 PO; +MIRALAX17 GM PO; +NYSTATIN15 GM TOP; +ROSUVASTATIN CA10 MG PO; +TRIPLE ANTIBIOT28 GM TOP; +VAGISIL TOP; +VITAMIN B121000 MCG PO; +VITAMIN D5000 UNIT PO
[2024-10-01 18:05] LABS: Hematocrit 37.6 % (33.0-51.0); Hemoglobin 12.7 g/dL (11.5-16.0); Mean Corpuscular HGB 31.1 pg (26.0-34.0); Mean Corpuscular HGB Conc 33.8 g/dL (31.5-36.5); Mean Corpuscular Volume 92 fL (80-100); Mean Platelet Volume 11.3 fL (9.1-12.4); Platelet Count 180 K/mm3 (150-400); RDW Coefficient Variation 13.3 % (11.7-14.2); RDW Standard Deviation 45.2 fL (35.1-46.3); Red Blood Cell Count 4.08 M/mm3 (3.80-5.20); White Blood Cell Count 6.62 K/mm3 (4.00-11.30)
[2024-10-01 18:23] LABS: Alanine Aminotransfer (ALT/SGP 21 U/L (12-78); Albumin, Blood 3.5 g/dL (3.4-5.0); Alk Phos 77 U/L (50-136); Anion Gap 14 mmol/L (3-11); Aspartate Aminotrans (AST/SGOT 21 U/L (12-37); Bilirubin, Total 0.4 mg/dL (0.1-1.0); Blood Urea Nitrogen 32 mg/dL (8-24); Bun/Creatinine Ratio 23.9 (12.0-20.0); CO2, Blood 20 mmol/L (21-32); Chloride, Blood 109 mmol/L (98-108); Creatinine, Blood 1.34 mg/dL (0.40-1.00); Ethanol (Alcohol), Blood, Med <3 mg/dL; Globulin, Blood 3.5 g/dL (2.2-4.0); Glomerular Filtration Rate 40 (60-); Glucose, Blood 270 mg/dL (70-99); Sodium, Blood 138 mmol/L (136-145)
[2024-10-01 18:35] LABS: Source, Urine Clean Catch
[2024-10-01 18:39] LABS: Appearance, Urine Clear (Clear); Bilirubin, Urine Neg (Neg); Blood, Urine Neg (Neg); Color, Urine Yellow (P-Yellow); Glucose Qualitative, Urine 3+ (Neg); Ketones, Urine Neg (Neg); Leukocyte Esterase, Urine Neg (Neg); Nitrite, Urine Neg (Neg); Protein, Urine 1+ (Neg); Urobilinogen, Urine NORM (Normal)
[2024-10-01 18:44] LABS: BASOPHILS PERCENT MAN 0 % (0-2); EOSINOPHILS PERCENT MAN 0 % (0-6); LYMPHOCYTES ABSOLUTE MAN 1.91 K/mm3 (0.84-5.20); LYMPHOCYTES PERCENT MAN 29 % (21-46); MONOCYTES ABSOLUTE MAN 0.26 K/mm3 (0.16-1.47); MONOCYTES PERCENT MAN 4 % (4-13); NEUTROPHILS ABSOLUTE MAN 4.43 K/mm3 (1.96-9.15); SEG NEUTROPHILS PERCENT MAN 67 % (41-73); TOTAL CELLS COUNTED 100
[2024-10-01 18:54] LABS: U Amphetamine Screen Not Detected; U Barbituate Screen Not Detected; U Benzodiazapine Screen Not Detected; U Buprenorphine Screen Not Detected; U Cannabinoids Screen Not Detected; U Cocaine Screen Not Detected; U Methadone Screen Not Detected; U Methamphetamine Screen Not Detected; U Opiates Screen Not Detected; U Oxycodone Screen Not Detected; U Phencyclidine Screen Not Detected
[2024-10-01 18:56] LABS: CORONAVIRUS COVID-19 AG Negative (NEGATIVE); INFLUENZA A AG Negative (NEGATIVE); INFLUENZA B AG Negative (NEGATIVE)
[2024-10-01 19:30] VITALS: BP 147/72
== END 2024-10-01 20:15 | disposition home or self-care (01) ==
LOC: ER 17:15
PROVIDERS: Student in an Organized Health Care Education/Training Program
DX: S09.90XA Unspecified injury of head, initial encounter (principal); R41.82 Altered mental status, unspecified; W18.30XA Fall on same level, unspecified, initial encounter; I10 Essential (primary) hypertension; E11.9 Type 2 diabetes mellitus without complications; E78.5 Hyperlipidemia, unspecified; K21.9 Gastro-esophageal reflux disease without esophagitis; Z87.440 Personal history of urinary (tract) infections; Z86.59 Personal history of other mental and behavioral disorders; Z86.73 Personal history of transient ischemic attack (TIA), and cerebral infarction without residual deficits; Z79.4 Long term (current) use of insulin; Z79.899 Other long term (current) drug therapy; Z79.02 Long term (current) use of antithrombotics/antiplatelets; Z88.6 Allergy status to analgesic agent; Z88.8 Allergy status to other drugs, medicaments and biological substances
CPT/HCPCS: 51701; 70450; 80053; 80320; 83735; 85025; 87428-QW; 93005; 93010; 99285-25

== ENCOUNTER → 2024-10-02 | Outpatient (CLI) | payer OTHER ==
[2024-10-02 18:09] LABS: Source, Urine Clean Catch
[2024-10-02 18:27] LABS: Bacteria Few /hpf; Red Blood Cells, Urine 0-2 /hpf (0-2); Squamous Epithelial Cells Mod /hpf (Few)
== END ==
LOC: LAB 18:05 → LAB SHORT 18:05
PROVIDERS: Family Medicine
DX: N39.0 Urinary tract infection, site not specified (principal)
CPT/HCPCS: 81015

== ENCOUNTER → 2024-10-05 | Outpatient (CLI) | payer OTHER ==
[2024-10-05 16:33] LABS: Appearance, Urine Clear (Clear); Bilirubin, Urine Neg (Neg); Blood, Urine Neg (Neg); Glucose Qualitative, Urine 2+ (Neg); Ketones, Urine Neg (Neg); Leukocyte Esterase, Urine 3+ (Neg); Nitrite, Urine Neg (Neg); Protein, Urine Neg (Neg); Urobilinogen, Urine NORM (Normal)
[2024-10-05 16:49] LABS: Bacteria Mod /hpf; Color, Urine Pale Yellow (P-Yellow); Red Blood Cells, Urine Not Seen /hpf (0-2); Squamous Epithelial Cells Rare /hpf (Few)
== END ==
LOC: LAB 13:58 → LAB SHORT 13:58
DX: N39.0 Urinary tract infection, site not specified (principal)
CPT/HCPCS: 81001

== ENCOUNTER → 2024-12-15 | Outpatient (CLI) | payer OTHER ==
[2024-12-15 11:56] LABS: Appearance, Urine Cloudy (Clear); Bilirubin, Urine Neg (Neg); Blood, Urine 3+ (Neg); Color, Urine Yellow (P-Yellow); Glucose Qualitative, Urine Neg (Neg); Ketones, Urine Neg (Neg); Leukocyte Esterase, Urine 3+ (Neg); Nitrite, Urine Pos (Neg); Protein, Urine 3+ (Neg); Urobilinogen, Urine NORM (Normal); pH, Urine 6.5 (5.0-8.0)
[2024-12-15 12:06] LABS: Bacteria Many /hpf; Squamous Epithelial Cells Mod /hpf (Few); White Blood Cells, Urine TNTC /hpf (0-5)
== END ==
LOC: LAB SHORT 10:48 → LAB 10:48
DX: N39.0 Urinary tract infection, site not specified (principal)
CPT/HCPCS: 81001; 87077; 87086; 87186

== ENCOUNTER → 2025-04-06 | Outpatient (CLI) | payer OTHER ==
[2025-04-06 16:29] LABS: Source, Urine Clean Catch
[2025-04-06 17:24] LABS: Bilirubin, Urine Neg (Neg); Glucose Qualitative, Urine 3+ (Neg); Ketones, Urine Neg (Neg); Leukocyte Esterase, Urine 3+ (Neg); Protein, Urine 2+ (Neg); Specific Gravity, Urine 1.015 (1.003-1.022); Urobilinogen, Urine NORM (Normal)
[2025-04-06 17:31] LABS: Color, Urine Pale Yellow (P-Yellow); White Blood Cells, Urine TNTC /hpf (0-5)
== END ==
LOC: LAB SHORT 16:26 → LAB 16:26
DX: N39.0 Urinary tract infection, site not specified (principal)
CPT/HCPCS: 81001; 87077; 87086; 87186

== ENCOUNTER → 2025-05-09 | Outpatient (CLI) | payer OTHER ==
[2025-05-09 11:44] LABS: Source, Urine Clean Catch
[2025-05-09 13:33] LABS: Bilirubin, Urine Neg (Neg); Color, Urine Yellow (P-Yellow); Glucose Qualitative, Urine Neg (Neg); Ketones, Urine Neg (Neg); Leukocyte Esterase, Urine 3+ (Neg); Protein, Urine 2+ (Neg); Specific Gravity, Urine 1.015 (1.003-1.022); Urobilinogen, Urine NORM (Normal)
[2025-05-09 13:45] LABS: Red Blood Cells, Urine 0-2 /hpf (0-2); White Blood Cells, Urine 50-100 /hpf (0-5)
== END | disposition home or self-care (01) ==
LOC: LAB SHORT 11:42 → LAB 11:42
DX: N39.0 Urinary tract infection, site not specified (principal)
CPT/HCPCS: 81001; 87077; 87086; 87186

== ENCOUNTER → 2025-05-23 | Outpatient (CLI) | payer OTHER ==
[2025-05-23 17:46] LABS: Bilirubin, Urine Neg (Neg); Color, Urine Yellow (P-Yellow); Glucose Qualitative, Urine 1+ (Neg); Ketones, Urine Neg (Neg); Leukocyte Esterase, Urine 2+ (Neg); Protein, Urine 1+ (Neg); Specific Gravity, Urine 1.020 (1.003-1.022); Urobilinogen, Urine NORM (Normal)
[2025-05-23 17:54] LABS: White Blood Cells, Urine 25-50 /hpf (0-5)
== END ==
LOC: LAB 16:29 → LAB SHORT 16:29
DX: N39.0 Urinary tract infection, site not specified (principal)
CPT/HCPCS: 81001; 87086

== ENCOUNTER → 2025-06-06 | Outpatient (CLI) | payer OTHER | LOC: LAB SHORT 17:25 → LAB 17:25 | DX: N39.0 Urinary tract infection, site not specified (principal) | CPT/HCPCS: 87086 ==

== ENCOUNTER 2025-08-09 13:22 | Emergency (ER) | payer OTHER ==
[~2025-08-09] VITALS: Ht 154.9 cm; Wt 77.1 kg
[2025-08-09 14:29] VITALS: BP 126/63
== END 2025-08-09 17:06 | disposition home or self-care (01) ==
LOC: ER 13:22
DX: S70.02XA Contusion of left hip, initial encounter (principal); W18.30XA Fall on same level, unspecified, initial encounter; I10 Essential (primary) hypertension; E11.9 Type 2 diabetes mellitus without complications; K21.9 Gastro-esophageal reflux disease without esophagitis; E78.5 Hyperlipidemia, unspecified; Z88.8 Allergy status to other drugs, medicaments and biological substances; Z79.899 Other long term (current) drug therapy
CPT/HCPCS: 70450; 72125; 72170; 73552; 73590; 99285-25

== ENCOUNTER → 2025-09-11 | Outpatient (CLI) | payer OTHER ==
[2025-09-11 18:38] LABS: Source, Urine Clean Catch
[2025-09-11 20:33] LABS: Bilirubin, Urine Neg (Neg); Color, Urine Yellow (P-Yellow); Glucose Qualitative, Urine 3+ (Neg); Ketones, Urine Neg (Neg); Leukocyte Esterase, Urine 1+ (Neg); Protein, Urine 2+ (Neg); Specific Gravity, Urine 1.010 (1.003-1.022); Urobilinogen, Urine 2+ (Normal)
[2025-09-11 20:44] LABS: Red Blood Cells, Urine 0-2 /hpf (0-2); White Blood Cells, Urine 25-50 /hpf (0-5); Yeast/Fungi Urine Rare /hpf
== END | disposition home or self-care (01) ==
LOC: LAB 15:30 → LAB SHORT 15:30
DX: N39.0 Urinary tract infection, site not specified (principal)
CPT/HCPCS: 81001; 87086